=== PATIENT | male | born 1960 | race Caucasian/White ===

== ENCOUNTER → 2021-01-14 | Outpatient (CLI) | payer OTHER ==
--- NOTE | 2021-01-14 14:40 | US ---
EXAMINATION TYPE: US thyroid st tissue head/neck DATE OF EXAM: 01/14/2021 COMPARISON: NONE CLINICAL HISTORY: 60-year-old male R59.0 Localized enlarged lymph nodes. Right medial shoulder level/ lateral neck palpable is noted by the patient. TECHNIQUE: Multiple sonographic images of the thyroid gland are obtained. Additional targeted scannin g at the patient's right-sided palpable site adjacent to the shoulder. FINDINGS: 1) RIGHT medial shoulder/lateral neck palpable US: solid hypoechoic oval mass is noted = 1.3 x 0.6 x 0.4cm. This seems to be located within the subcutaneous adipose layer. 2) Thyroid evaluation: GLAND SIZE: Right Lobe: 5.0 x 1.5 x 1.9 cm Overall Parenchyma: homogenous Left Lobe: 4.7 x 1.7 x 1.5 cm Overall Parenchyma: homogeneous Isthmus Thickness: 0.2 cm Thyroid NODULES RIGHT: # of nodules measured on right: 1 1. 0.5 X 0.5 x 0.4 cm, mid pole, solid, isoechoic TR 3 nodule, which is wider than tall, with ill-d efined margins, without echogenic foci. LEFT: # of nodules measured on left: 0 ISTHMUS: # of nodules measured in the isthmus: 0 Bilateral neck scanned: Prominent, mildly thickened but nonenlarged lymph node is seen superior to ri ght thyroid = 1.7 x 1.0x 0.7cm. IMPRESSION: 1. Palpable area near the medial aspect of the right shoulder shows a 1.3 cm hypoechoic lesion in the subcutaneous adipose layer. This is nonspecific. Consider the possibility of a lipoma or area of fat necrosis. Three-month follow-up to reassess. If growth is noted or symptomatic, consider surgical ev aluation. 2. A thickened and borderline sized 1 cm short axis lymph node in the right side of the neck just abo ve the thyroid gland probably reactive/post inflammatory. 1.5 - 2 month follow-up ultrasound to ensur e stability/resolution. If there is further growth, contrast enhanced CT of the neck can be considere d. 3. Solitary 5 mm TR3 nodule in the right thyroid lobe.
== END | disposition home or self-care (01) ==
LOC: RADUSWWP 12:03
PROVIDERS: ATTEND Family Medicine
DX: E04.1 Nontoxic single thyroid nodule (principal); M25.9 Joint disorder, unspecified
CPT/HCPCS: 76536

== ENCOUNTER 2021-04-30 08:07 | Inpatient (IN) | payer OTHER ==
[2021-03-11 09:03] VITALS: BMI 34.2
[~2021-04-30 08:07] MED LIST: LACTATED RINGERS 1,000 ML IV SCH; LIDOCAINE 1% (10MG/ML) FOR IV START INTRADERMA PRN
[2021-04-30] MEDS: LACTATED RINGERS 1,000 ML IV SCH (08:47)
[2021-04-30 08:51] LABS: Glucose,Whole Blood 111 mg/dL (75-99)
[2021-04-30] MEDS ORDERED: LABETALOL 5 MG/ML VIAL MDV IVP ONE (08:58)
[2021-04-30] MEDS ORDERED: HEPARIN SODIUM 1,000 UN/ML (10ML VL) IV PRN (10:19)
[2021-04-30] MEDS ORDERED: HEPARIN SODIUM 1,000 UN/ML (10ML VL) IV ONE (10:19)
[2021-04-30] MEDS ORDERED: DILTIAZEM DRIP BOLUS FROM BAG 1 MG SOLN IV ONE (10:19)
[2021-04-30] MEDS: IV FLUID CONTINUATION 1,000 ML IV ONE ×2 (10:41→13:58)
[2021-04-30] MEDS ORDERED: DILTIAZEM 125 MG in SODIUM CHLORIDE 0.9% 100 ML IV SCH (11:00)
[2021-04-30] MEDS ORDERED: HEPARIN SOD,PORK IN 0.45% NACL 25,000 UNIT in 0.45% NACL 1 250ML.BAG IV SCH (11:00)
[2021-04-30 11:14] LABS: Partial Thromboplastin Time 24.6 sec (22.0-30.0); Prothrombin Time 10.4 sec (9.0-12.0)
[2021-04-30] MEDS: METOPROLOL TARTRATE 25 MG TAB PO SCH ×2 (11:24→21:05)
--- NOTE | 2021-04-30 11:41 | P.CRDCN ---
History of Present Illness Consult date: 04/30/21 History of present illness: HISTORY OF PRESENT ILLNESS: This is a 60-year-old male with a past medical history significant for for paroxysmal atrial fibrillation/flutter. The patient used to follow with Dr. Nguyen but states after he retired he has not seen a digital account director. He also reports that he stopped taking all of his cardiac medications after he stopped seeing his digital account director. The patient reports that he used to have a history of alcohol abuse but reports that he stopped drinking 5 years ago. We have been asked to see the patient in consultation for tachycardia. The patient was scheduled to undergo colonoscopy today with Dr. Cloud. The patient was found to be tachycardic in the preoperative area and cardiology was consulted. The patient was examined at the bedside with Dr. Menjivar. His EKG was reviewed revealing atrial flutter with RVR with heart rate around 150. The patient's blood pressure is stable. He denies any chest pain or pressure. He denies shortness of breath. He denies any palpitations. EKG reveals atrial flutter with RVR Laboratory data: Not available at the time of this dictation Current home cardiac medications include none Patient underwent stress echocardiogram in July 2018 which was negative for ischemia REVIEW OF SYSTEMS: At the time of my exam: CONSTITUTIONAL: Denies fever or chills. HEENT: Denies blurred vision, vision changes, or eye pain. Denies hemoptysis CARDIOVASCULAR: Denies chest pain. Denies orthopnea. Denies PND. Denies palpitations RESPIRATORY: Denies shortness of breath. GASTROINTESTINAL: Denies abdominal pain. Denies nausea or vomiting. HEMATOLOGIC: Denies bleeding disorders. GENITOURINARY: Denies any blood in urine. SKIN: Denies pruitis. Denies rash. PHYSICAL EXAM: VITAL SIGNS: Reviewed. GENERAL: Well-developed in no acute distress. HEENT: Head is normocephalic. Pupils are equal, round. Sclerae anicteric. Mucous membranes of the mouth are moist. Neck supple. No JVD or thyromegaly LUNGS: Respirations even and unlabored. Lungs essentially clear to auscultation bilaterally. HEART: Tachycardic. Regular rate and rhythm. S1 and S2 heard. ABDOMEN: Soft. Nondistended. Nontender. EXTREMITIES: Normal range of motion. No clubbing or cyanosis. Peripheral pulses intact. Trace bilateral lower extremity edema NEUROLOGIC: Awake and alert. Oriented x 3. ASSESSMENT: Paroxysmal typical atrial flutter with RVR History of paroxysmal atrial fibrillation/flutter History of alcohol abuse Former nicotine dependence PLAN: The patient's colonoscopy will be canceled for today secondary to atrial flutter with RVR. The patient will be admitted to . Begin IV Cardizem at 5mg/hr after 5mg bolus. Begin metoprolol 25 mg twice a day Check TSH Continue telemetry monitoring Obtain 2-D echo to assess cardiac structure and function The patient will need to be started on oral anticoagulation. We will begin IV heparin at this time and await further input from GI service to see if they're able to perform colonoscopy tomorrow. Further recommendations pending patient course Nurse practitioner note has been reviewed by physician. Signing provider agrees with the documented findings, assessment, and plan of care. Past Medical History Past Medical History: No Reported History History of Any Multi-Drug Resistant Organisms: None Reported Additional Past Surgical History / Comment(s): WISDOM TEETH REMOVED UNDER ANESTHESIA ABOUT 10 YEARS AGO Past Anesthesia/Blood Transfusion Reactions: No Reported Reaction Smoking Status: Former smoker - Past Family History Father Family Medical History: Cancer Son(s) Family Medical History: Cancer Additional Family Medical History / Comment(s): SKIN Medications and Allergies Home Medications Medication Instructions Recorded Confirmed Type No Known Home Medications 03/11/21 04/30/21 History Allergies Allergy/AdvReac Type Severity Reaction Status Date / Time No Known Allergies Allergy Verified 04/30/21 08:25 Physical Exam Vitals: Vital Signs Temp Pulse Resp BP Pulse Ox 04/30/21 09:48 145 H 16 108/77 97 04/30/21 09:21 148 H 16 117/67 95 04/30/21 09:06 148 H 18 106/75 98 04/30/21 08:32 97.7 F 158 H 18 117/73 96 Intake and Output 04/29/21 04/30/21 04/30/21 22:59 06:59 14:59 Intake Total 700 Balance 700 Intake: IV 700 Other: Weight 123.2 kg Results Coagulation 04/30/21 Range/Units 10:34 PT 10.4 (9.0-12.0) sec APTT 24.6 (22.0-30.0) sec Current Medications Generic Name Dose Route Start Last Admin Trade Name Rigobertoq PRN Reason Stop Dose Admin Heparin Sodium (Porcine) 0 unit 04/30/21 10:19 Heparin Sodium 1,000 Un/Ml (10ml Vl) IV 05/30/21 10:20 PER PROTOCOL PRN Low PTT Protocol Lactated Ringer's 1,000 mls @ 20 mls/hr 04/30/21 06:00 04/30/21 08:47 Lactated Ringers IV 05/30/21 06:01 700 mls .Q24H CINDY Administration Diltiazem HCl 125 mg/ Sodium 125 mls @ 5 mls/hr 04/30/21 11:00 04/30/21 10:42 Chloride IV 05/30/21 11:01 0 mls .Q24H CINDY Administration 5 MG/HR Heparin Sodium/Sodium Chloride 250 mls @ 10 mls/hr 04/30/21 11:00 04/30/21 11:24 25,000 unit/ Sodium Chloride IV 05/30/21 11:01 0 mls .Q24H CINDY Administration Protocol 8.117 UNITS/KG/HR Lidocaine HCl 0.1 ml 04/30/21 06:00 Lidocaine 1% (10mg/Ml) For Iv Start INTRADERMA 05/30/21 06:01 PER PROTOCOL PRN IV Start Metoprolol Tartrate 25 mg 04/30/21 10:30 04/30/21 11:24 Metoprolol Tartrate 25 Mg Tab PO 05/30/21 10:31 25 mg BID CINDY Administration Intake and Output 04/29/21 04/30/21 04/30/21 22:59 06:59 14:59 Intake Total 700 Balance 700 Intake: IV 700 Other: Weight 123.2 kg Patient Weight 05/01/21 06:59 Weight 123.2 kg
--- NOTE | 2021-04-30 16:41 | P.HPIM ---
History of Present Illness H&P Date: 04/30/21 Chief Complaint: tachycardia 60 year old man with history of paroxysmal atrial fibrillation presented for elective colonoscopy, but was transferred to the hospital for tachycardia. Pt was in his usual state of health, when he presented for elective colonoscopy. Patient was then noted to have heart rates in the 180s. Cardiology was consulted, and EKG demonstrated atrial flutter with RVR. Patient was subsequently transferred to the floor, and started on a diltiazem drip, heparin drip. Patient's heart rates improved to the 70s, and return to sinus rhythm. Patient himself has no complaints including denial of fevers, chills, nausea, vomiting, chest pain, palpitations, syncope, presyncope, abdominal pain, cough, dyspnea, dysuria, dyschezia, numbness/weakness of extremities. At the time of my evaluation, patient was 113/60, heart rate 91, 96% on room air. Review of Systems All Systems reviewed and pertinent positives and negatives noted in HPI, all other symptoms are negative Past Medical History Past Medical History: No Reported History History of Any Multi-Drug Resistant Organisms: None Reported Additional Past Surgical History / Comment(s): WISDOM TEETH REMOVED UNDER ANESTHESIA ABOUT 10 YEARS AGO Past Anesthesia/Blood Transfusion Reactions: No Reported Reaction Past Psychological History: No Psychological Hx Reported Smoking Status: Former smoker Past Alcohol Use History: None Reported Additional Past Alcohol Use History / Comment(s): QUIT SMOKING 2015. NO ALCOHOL SINCE 2015 Past Drug Use History: None Reported - Past Family History Father Family Medical History: Cancer Son(s) Family Medical History: Cancer Additional Family Medical History / Comment(s): SKIN Medications and Allergies Home Medications Medication Instructions Recorded Confirmed Type Apixaban [Eliquis] 5 mg PO BID 30 Days #60 tab 04/30/21 Rx Allergies Allergy/AdvReac Type Severity Reaction Status Date / Time No Known Allergies Allergy Verified 04/30/21 08:25 Physical Exam Osteopathic Statement: *. No significant issues noted on an osteopathic structural exam other than those noted in the History and Physical/Consult. Vitals: Vital Signs Temp Pulse Resp BP Pulse Ox 04/30/21 12:00 91 20 113/60 96 04/30/21 11:45 92 20 112/63 96 04/30/21 11:30 144 H 20 109/62 96 04/30/21 11:15 141 H 20 118/63 96 04/30/21 11:00 181 H 20 128/62 96 04/30/21 10:45 162 H 20 130/61 96 04/30/21 10:30 179 H 20 132/62 95 04/30/21 09:48 145 H 16 108/77 97 04/30/21 09:21 148 H 16 117/67 95 04/30/21 09:06 148 H 18 106/75 98 04/30/21 08:32 97.7 F 158 H 18 117/73 96 Intake and Output 04/30/21 04/30/21 04/30/21 06:59 14:59 22:59 Intake Total 700 Balance 700 Intake: IV 700 Other: Weight 123.2 kg Gen: awake, alert HEENT: normocephalic, atraumatic, good hearing acuity, moist mucous membranes Resp: good air exchange, breathing comfortably with no accessory muscle use CVS: good distal perfusion x 4, GI: soft, NTTP, ND : no SPT, no CVAT, guadarrama catheter not present MSK: no pitting edema, no clubbing Neuro: non-focal, moving all extremities Psych: cooperative, euthymic mood Results Labs: Abnormal Lab Results - Last 24 Hours (Table) 04/30/21 Range/Units 08:46 POC Glucose (mg/dL) 111 H (75-99) mg/dL Assessment and Plan Assessment: Paroxysmal atrial flutter with RVR -Admit to observation, telemetry -Heparin drip -Diltiazem drip -Cardiology consult -Echocardiogram -Check TSH -Patient had a sandwich for dinner, will have to defer the colonoscopy as he does not want to re-prep at this time. Obesity class II -outpatient weight loss referral Full Code
[2021-04-30 17:40] LABS: African American GFR (CKD) >90 (>60 ml/min/1.73 sqM); Anion Gap 10 mmol/L; Blood Urea Nitrogen 12 mg/dL (9-20); Calcium 9.1 mg/dL (8.4-10.2); Carbon Dioxide 24 mmol/L (22-30); Chloride 106 mmol/L (98-107); Glucose 93 mg/dL (74-99); Non-African American GFR(CKD) 87 (>60 ml/min/1.73 sqM); Potassium 4.1 mmol/L (3.5-5.1); Sodium 140 mmol/L (137-145)
[2021-04-30 17:48] LABS: Basophils # (A) 0.1 k/uL (0-0.2); Basophils % (A) 1 %; Eosinophils # (A) 0.2 k/uL (0-0.7); Eosinophils % (A) 2 %; HCT 48.4 % (39.0-53.0); HGB 15.8 gm/dL (13.0-17.5); Lymphocytes # (A) 2.7 k/uL (1.0-4.8); Lymphocytes % (A) 28 %; MCH 31.2 pg (25.0-35.0); MCHC 32.7 g/dL (31.0-37.0); MCV 95.5 fL (80.0-100.0); Mean Platelet Volume 7.8; Monocytes # (A) 0.8 k/uL (0-1.0); Monocytes % (A) 8 %; Neutrophils # (A) 5.7 k/uL (1.3-7.7); Neutrophils % (A) 59 %; Platelet Count 284 k/uL (150-450); RBC 5.07 m/uL (4.30-5.90); RDW 13.4 % (11.5-15.5); WBC 9.6 k/uL (3.8-10.6)
[2021-04-30] MEDS: APIXABAN 5 MG TAB PO SCH (21:05)
[2021-05-01] MEDS: LACTATED RINGERS 1,000 ML IV SCH (05:32)
[2021-05-01] MEDS: APIXABAN 5 MG TAB PO SCH (08:19)
[2021-05-01] MEDS: METOPROLOL TARTRATE 25 MG TAB PO SCH (08:19)
[2021-05-01 08:21] LABS: Basophils % (A) 1 %; Eosinophils # (A) 0.2 k/uL (0-0.7); Eosinophils % (A) 3 %; HCT 46.8 % (39.0-53.0); HGB 15.1 gm/dL (13.0-17.5); Lymphocytes # (A) 1.5 k/uL (1.0-4.8); Lymphocytes % (A) 22 %; MCHC 32.2 g/dL (31.0-37.0); MCV 96.4 fL (80.0-100.0); Mean Platelet Volume 7.8; Monocytes # (A) 0.4 k/uL (0-1.0); Monocytes % (A) 5 %; Neutrophils # (A) 4.6 k/uL (1.3-7.7); Neutrophils % (A) 67 %; Platelet Count 262 k/uL (150-450); RBC 4.85 m/uL (4.30-5.90); RDW 13.4 % (11.5-15.5); WBC 6.9 k/uL (3.8-10.6)
[2021-05-01 08:22] VITALS: RESP 16
[2021-05-01 08:31] LABS: Prothrombin Time 10.5 sec (9.0-12.0)
--- NOTE | 2021-05-01 08:56 | ECHOF ---
Referral Reason:aflutter rvr, lv function MEASUREMENTS -------- HEIGHT: 180.3 cm WEIGHT: 122.9 kg BP: RVIDd: 3.4 cm (< 3.3) IVSd: 1.2 cm (0.6 - 1.1) LVIDd: 4.9 cm (3.9 - 5.3) LVPWd: 1.1 cm (0.6 - 1.1) IVSs: 1.6 cm LVIDs: 3.6 cm LVPWs: 1.3 cm Ao Diam: 4.0 cm (2.0 - 3.7) AV Cusp: 2.3 cm (1.5 - 2.6) LA Diam: 2.7 cm (2.7 - 3.8) IVSd: 1.0 cm (0.6 - 1.1) LVIDd: 4.3 cm (3.9 - 5.3) LVPWd: 1.2 cm (0.6 - 1.1) IVSs: 1.2 cm LVIDs: 3.4 cm LVPWs: 1.5 cm EDV(Teich): 83 ml ESV(Teich): 46 ml EF(Teich): 44 % %FS: 22 % SV(Teich): 37 ml MV E Enio: 0.52 m/s MV DecT: 183 ms MV A Enio: 0.35 m/s MV E/A Ratio: 1.49 RAP: 5.00 mmHg RVSP: 8.03 mmHg FINDINGS -------- This was a technically difficult study with suboptimal views. The left ventricular size is normal. There is mild concentric left ventricular hypertrophy. Overa ll left ventricular systolic function is mild-moderately impaired with, an EF between 40 - 45 %. The right ventricle is mildly enlarged. The left atrial size is normal. The right atrial size is normal. Lumason used The aortic valve is trileaflet and appears structurally normal. The mitral valve is normal. Mild mitral regurgitation is present. The tricuspid valve appears structurally normal. Mild tricuspid regurgitation present. Right vent ricular systolic pressure is normal at < 35 mmHg. There is no pulmonic regurgitation present. The aortic root size is normal. IVC Not well visulized. There is no pericardial effusion. CONCLUSIONS -------- 1. The left ventricular size is normal. 2. There is mild concentric left ventricular hypertrophy. 3. Overall left ventricular systolic function is mild-moderately impaired with, an EF between 40 - 45 %. 4. The right ventricle is mildly enlarged. 5. Mild mitral regurgitation is present. 6. Mild tricuspid regurgitation present. 7. There is no pericardial effusion. BULK STATION OPERATOR: Heather Barreto RDCS
[2021-05-01] MEDS ORDERED: LOSARTAN 25 MG TAB PO SCH ×2 (09:30)
--- NOTE | 2021-05-01 11:09 | P.DS ---
Providers Date of admission: 04/30/21 12:39 Expected date of discharge: 05/01/21 Attending physician: Alexa Jeff MD Consults: 04/30/21 09:42 Consult Physician Urgent Consulting Provider: [facility] Consult Reason/Comments: tacchycardia, pt scheduled fro colonoscopy today Do you want consulting provider notified?: Yes 04/30/21 11:42 Consult Physician Routine Consulting Provider: Jessika Hernandez Consult Reason/Comments: MEDICAL MANAGEMENT Do you want consulting provider notified?: Yes Primary care physician: Gaurav Mckeon MD Hospital Course: 60-year-old male admitted to the hospital after having tachycardia A. fib with RVR patient was scheduled to have colonoscopy and was found to be tachycardic was found to be in A. fib so was admitted to the hospital started on Cardizem drip if by cardiology patient feels much better today was cleared to go home During the hospital stay the patient remained stable Constitutional: No acute distress, conversant, pleasant Eyes: Anicteric sclerae, moist conjunctiva, no lid-lag PERRLA ENMT: NC/AT Oropharynx clear, no erythema, exudates Neck: Supple, FROM, no masses, or JVD No carotid bruits No thyromegaly Lungs: Clear to auscultation Clear to percussion Normal respiratory effort, no accessory muscle use Cardiovascular: Heart regular in rate and rhythm, No murmurs, gallops, or rubs No peripheral edema Abdominal: Soft Nontender, no guarding, rebound or rigidity Abdomen moving with respiration Normoactive bowel sounds No hepatomegaly, No splenomegaly No palpable mass No abdominal wall hernia noted Skin: Normal temperature, tone, texture, turgor No induration No subcutaneous nodules No rash, lesions No ulcers Extremities: No digital cyanosis No clubbing Pedal pulses intact and symmetrical Radial pulses intact and symmetrical Normal gait and station No calf tenderness Psychiatric:Alert and oriented to person, place and time Appropriate affect Intact judgement Neuro: Muscles Strength 5/5 in all 4 extremities Sensation to light touch grossly present throughout Cranial nerves II-XII grossly intact No focal sensory deficits Discharge plan A. fib with RVR resolved patient will be discharged on Lopressor and anticoagulation to follow-up with cardiology and primary care physician Follow-up with gastroenterology for arranging colonoscopic Patient Condition at Discharge: Stable Plan - Discharge Summary Discharge Rx Participant: No New Discharge Prescriptions: New Apixaban [Eliquis] 5 mg PO BID 30 Days #60 tab Apixaban [Eliquis] 5 mg PO BID tab Losartan [Cozaar] 25 mg PO DAILY 30 Days #30 tab Metoprolol Tartrate [Lopressor] 25 mg PO BID 30 Days #60 tab Discharge Medication List Apixaban [Eliquis] 5 mg PO BID 30 Days #60 tab 04/30/21 [Rx] Apixaban [Eliquis] 5 mg PO BID tab 05/01/21 [Rx] Losartan [Cozaar] 25 mg PO DAILY 30 Days #30 tab 05/01/21 [Rx] Metoprolol Tartrate [Lopressor] 25 mg PO BID 30 Days #60 tab 05/01/21 [Rx] Follow up Appointment(s)/Referral(s): Myles Alcala MD [STAFF PHYSICIAN] - 05/08/21 8:30 am Patient Instructions/Handouts: Atrial Flutter (DC) Discharge Disposition: HOME SELF-CARE
[2021-05-01 11:57] VITALS: BP 125/82; PULSE 96; TEMP 98.4
--- NOTE | 2021-05-01 12:00 | P.PN ---
Subjective This is a 60-year-old male with a past medical history significant for for paroxysmal atrial fibrillation/flutter, previous alcohol use. The patient used to follow with Dr. Nguyen but states after he retired he has not seen a puller machine. He also reports that he stopped taking all of his cardiac medications after he stopped seeing his puller machine. The patient reports that he used to have a history of alcohol abuse but reports that he stopped drinking 5 years ago. We have been asked to see the patient in consultation for tachycardia. The patient was scheduled to undergo colonoscopy today with Dr. Toro. The patient was found to be tachycardic in the preoperative area and cardiology was consulted. His EKG was reviewed revealing atrial flutter with RVR with heart rate around 150. He was started on IV Heparin drip, IV cardizem, and metoprolol tartrate 25mg BID. 2-D echocardiogram revealed EF of 4045 percent, mild mitral regurgitation, mild tricuspid regurgitation. Patient seen and examined at bedside, no acute distress. He converted to sinus mechanism yesterday and is maintaining sinus mechanism. Vital signs are stable. His colonoscopy has been canceled. Labs reviewed, CBC unremarkable, sodium 140, potassium 4.1, BUN 12, serum creatinine 0.9, TSH within normal limits. PHYSICAL EXAM: VITAL SIGNS: Blood pressure 05[birth year]13/1981, heart rate 96, afebrile, saturations 97% on room air GENERAL: Well-developed in no acute distress. HEENT: Neck supple. No JVD LUNGS: Respirations even and unlabored. Lungs essentially clear to auscultation bilaterally. HEART: Regular rate and rhythm. S1 and S2 heard. ABDOMEN: Soft. Nondistended. Nontender. EXTREMITIES: Normal range of motion. No clubbing or cyanosis. Peripheral pulses intact. NEUROLOGIC: Awake and alert. Oriented x 3. ASSESSMENT: Paroxysmal typical atrial flutter with RVR Cardiomyopathy, likely non-ischemic, cannot rule out ischemic vs non-ischemic at this time History of paroxysmal atrial fibrillation/flutter History of alcohol abuse Former nicotine dependence PLAN: We will continue metoprolol tartrate at 25mg BID. Continue Eliquis 5mg BID, case management consulted for coverage appreciate recommendations. Patient does need longterm anticoagulation. Patient was previously on coumadin we may need to bridge to coumadin based on anticoagulation cost coverage Patient to follow up with Dr. Alcala outpatient next week appointment on 05/08/21. Patient may need atrial flutter ablation in the future. Nurse practitioner note has been reviewed by physician. Signing provider agrees with the documented findings, assessment, and plan of care. Objective - Vital Signs Vital signs: Vital Signs Temp 97.9 F 05/01/21 08:10 Pulse 92 05/01/21 08:10 Resp 16 05/01/21 08:10 BP 117/73 05/01/21 08:10 Pulse Ox 93 L 05/01/21 08:10 Intake & Output 04/30/21 05/01/21 05/01/21 18:59 06:59 18:59 Intake Total 940 120 Balance 940 120 Weight 123.2 kg 122.3 kg Intake: IV 700 Oral 240 120 Other: Voiding Method Toilet # Voids 1 - Labs CBC & Chem 7: 05/01/21 07:55 04/30/21 16:53
[2021-05-01 17:11] LABS: Chol/HDL Ratio 3.77 Ratio; VLDL Calculation 17.08 mg/dL (5.00-40.00)
== END 2021-05-01 14:15 | disposition home or self-care (01) | DRG 310 ==
LOC: ORWHC2ENDO 08:07 → 3SCARD 12:21 → OBSVTOIN 12:39 → 3SCARD 12:39
PROVIDERS: ADMIT Internal Medicine; ATTEND Internal Medicine
DX: I48.0 Paroxysmal atrial fibrillation (principal); I42.9 Cardiomyopathy, unspecified; I48.3 Typical atrial flutter; F10.11 Alcohol abuse, in remission; I08.1 Rheumatic disorders of both mitral and tricuspid valves; Z53.8 Procedure and treatment not carried out for other reasons; E66.9 Obesity, unspecified; Z68.35 Body mass index [BMI] 35.0-35.9, adult; Z98.818 Other dental procedure status; Z87.891 Personal history of nicotine dependence; Z80.8 Family history of malignant neoplasm of other organs or systems
CPT/HCPCS: 80048; 80061; 83036; 84443; 85025; 85610; 85730; 93306

== ENCOUNTER → 2021-06-16 | Outpatient (CLI) | payer OTHER ==
[2021-06-16 10:20] LABS: HCT 50.5 % (39.6-50.0); HGB 16.5 g/dL (13.0-17.0); MCH 30.2 pg (27.0-32.0); MCHC 32.7 g/dL (32.0-37.0); MCV 92.5 fL (80.0-97.0); Mean Platelet Volume 10.8 fL (9.5-12.2); NRBC Per 100 WBC 0 /100 WBCS (0.0-0.0); Platelet Count 276 X 10*3/uL (140-440); RBC 5.46 X 10*6/uL (4.40-5.60); WBC 8.46 X 10*3/uL (4.50-10.00)
[2021-06-16 10:27] LABS: African American GFR (CKD) 101.7 (60.0-200.0); Anion Gap 10.2 mmol/L (10.00-18.00); Carbon Dioxide 22.5 mmol/L (20.0-27.5); Non-African American GFR(CKD) 87.7 (60.0-200.0); Potassium 4.7 mmol/L (3.5-5.5)
[2021-06-17 13:37] LABS: Coronavirus SARS CoV-2 Not Detected (Not Detected)
== END ==
LOC: LABPAT 07:09
PROVIDERS: ATTEND Internal Medicine Clinical Cardiac Electrophysiology
DX: Z01.812 Encounter for preprocedural laboratory examination (principal); I48.3 Typical atrial flutter
CPT/HCPCS: 80051; 82565; 84520; 85027; 36415; U0003; C9803

== ENCOUNTER 2021-06-19 11:45 | Day surgery (SDC) | payer OTHER ==
[2021-06-18 09:52] VITALS: BMI 33.6
[2021-06-19] MEDS ORDERED: SODIUM CHLORIDE 0.9% 1,000 ML IV ONE (12:10)
[2021-06-19] MEDS ORDERED: NEOSTIGMINE 1 MG/ML 10 ML VIAL ONE (14:21)
[2021-06-19] MEDS ORDERED: LIDOCAINE 1% INJ 10MG/ML (20 ML MDV) ONE ×2 (14:21→14:38)
[2021-06-19] MEDS ORDERED: ISOPROTERENOL 250 MCG/1.25 ML SYR IV ONE (14:21)
[2021-06-19] MEDS ORDERED: GLYCOPYRROLATE 0.2 MG/ML 2 ML VIAL ONE (14:21)
[2021-06-19] MEDS ORDERED: SUCCINYLCHOLINE CHLORIDE 100 MG/5 ML SYR IV ONE (14:21)
[2021-06-19] MEDS ORDERED: HYDROmorphone (PF) 1 MG/ML ONE (14:21)
[2021-06-19] MEDS ORDERED: ROCURONIUM 10 MG/ML (5 ML VIAL) IV ONE (14:21)
[2021-06-19] MEDS ORDERED: MIDAZOLAM 2 MG/2 ML VIAL ONE (14:21)
[2021-06-19] MEDS ORDERED: PROPOFOL 10 MG/ML 20 ML VIAL IV ONE (14:21)
[2021-06-19] MEDS ORDERED: fentaNYL (PF) 50 MCG/ML 2 ML AMP ONE (14:21)
--- NOTE | 2021-06-19 15:09 | P.HPCAR ---
History of Present Illness This is Dr. 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 EXAMINATION: Blood pressure 118/75 mmHg pulse rate 80s, afebrile No JVD Lungs no rhonchi no crackles Heart sounds are normal normal S1 normal S2 Abdomen soft Extended is warm no edema REVIEW OF LABS, ECG & MEDICAL DATA Lipid panel pending Twelve-lead EKG from April shows typical atrial flutter with ventricular rates of 136 beats a minute him a 2-1 AV block Physical Exam Vitals: Vital Signs Temp Pulse Resp BP Pulse Ox 06/19/21 12:26 97.6 F 81 16 118/75 100 Intake and Output 06/19/21 06/19/21 06/19/21 06:59 14:59 22:59 Intake Total 300 Balance 300 Intake: IV 300 Other: Weight 117 kg Past Medical History Past Medical History: Atrial Fibrillation, Hyperlipidemia, Hypertension Additional Past Medical History / Comment(s): SEE DR. ALCALA'S H & P History of Any Multi-Drug Resistant Organisms: None Reported Past Surgical History: No Surgical Hx Reported Additional Past Surgical History / Comment(s): WISDOM TEETH REMOVED UNDER ANESTHESIA ABOUT 10 YEARS AGO, Past Anesthesia/Blood Transfusion Reactions: No Reported Reaction Smoking Status: Former smoker - Past Family History Father Family Medical History: Cancer Son(s) Family Medical History: Cancer Additional Family Medical History / Comment(s): SKIN Physical Examination Vital Signs Temp Pulse Resp BP Pulse Ox 06/19/21 12:26 97.6 F 81 16 118/75 100 Intake and Output 06/19/21 06/19/21 06/19/21 06:59 14:59 22:59 Intake Total 300 Balance 300 Intake: IV 300 Other: Weight 117 kg Results Current Medications Generic Name Dose Route Start Last Admin Trade Name Freq PRN Reason Stop Dose Admin Sodium Chloride 1,000 mls @ 20 mls/hr 06/19/21 06:01 Saline 0.9% IV 07/19/21 06:02 .Q24H CINDY Intake and Output 06/19/21 06/19/21 06/19/21 06:59 14:59 22:59 Intake Total 300 Balance 300 Intake: IV 300 Other: Weight 117 kg Patient Weight 06/20/21 06:59 Weight 117 kg
[2021-06-19] MEDS ORDERED: LIDOCAINE 1% INJ 10MG/ML (20 ML MDV) SQ ONE (15:36)
[2021-06-19] MEDS ORDERED: HEPARIN SODIUM (1,000 UNIT/ML) 1,000 UNIT in SODIUM CHLORIDE 0.9% 1,000 ML IRRIGATION ONE (16:06)
--- NOTE | 2021-06-19 18:17 | P.EPPROC ---
- EP Procedure Note Electrophysiology Procedure Note: Procedure Typical atrial flutter ablation, successful Indication for procedure typical atrial flutter with RVR Rate-related cardio myopathy Details Patient was brought to the EP lab in a fasting state. Written informed consent was obtained prior to the procedure. General anesthesia was provided Venous access obtained in the right and left femoral veins Diagnostic cath was placed in the high right atrium coronary sinus His bundle area and right ventricle Intracardiac echo catheter list for 3-D mapping. No pericardial effusion Long sheath placed Mapping and ablation catheter placed irrigated tip 3-D electro-anatomic mapping performed Cavo tricuspid isthmus identified This was a long isthmus with a mid isthmus pouch, small RF ablation was performed along the cavo tricuspid isthmus A second lesion had to be performed in juxtaposition to this first-line slightly on the lateral aspect to obtain complete bidirectional block This is confirmed with noncapture capture at high output along the line Differential pacing was performed Complete line of block was noted at 100% force time integral Conduction around the IVC was noted but not through the RF line This was a long procedure since it involved a long isthmus, ablation of a pouch within the isthmus, multiple pacing maneuvers to determine that there was no leak across But conduction was proceeding around the IVC resulting in the short-term isthmus conduction time to is the IVC portion of the line Output pacing was performed along the line Following that a full EP study is performed Sinus cycle length 827 ms, QRS 95, QT 488 and MA interval 164 ms AH 97 and HV 54 ms AV node Wenckebach block 300 ms VA Wenckebach block 300 ms Sinus node recovery times at 600, 504 100 ms were normal Isuprel was started after the ablation Burst stimulation was performed from 400 ms down to 200 ms from the high right atrium No atrial fibrillation induced Impression Normal sinus node function Normal AV node function No evidence for slow pathway conduction Successful atrial flutter ablation No inducible atrial fibrillation with burst stimulation on Isuprel
[2021-06-19] MEDS ORDERED: ACETAMINOPHEN TAB 325 MG TAB PO PRN (18:21)
[2021-06-19] MEDS ORDERED: HYDROcodone/APAP 5-325MG 1 EACH TAB PO PRN (18:21)
[2021-06-19] MEDS ORDERED: HYDROmorphone 0.5 MG/0.5 ML SYRINGE IVP ONE ×2 (18:40→18:57)
[2021-06-19] MEDS: ACETAMINOPHEN IV (For NPO) 1,000 MG in EMPTY BAG 1 BAG IVPB ONE ×2 (18:50→19:05)
[2021-06-19] MEDS: SODIUM CHLORIDE 0.9% 1,000 ML IV SCH (20:23)
[2021-06-19] MEDS: APIXABAN 5 MG TAB PO SCH (20:28)
[2021-06-19] MEDS: METOPROLOL TARTRATE 25 MG TAB PO SCH (20:28)
[2021-06-19] MEDS ORDERED: ATORVASTATIN 20 MG TAB PO SCH (21:00)
[2021-06-20] MEDS: SODIUM CHLORIDE 0.9% 1,000 ML IV SCH (05:25)
[2021-06-20] MEDS: METOPROLOL TARTRATE 25 MG TAB PO SCH (07:47)
[2021-06-20] MEDS: APIXABAN 5 MG TAB PO SCH (07:47)
[2021-06-20 07:52] VITALS: RESP 18; TEMP 97.7
[2021-06-20] MEDS ORDERED: LOSARTAN 25 MG TAB PO SCH (09:00)
--- NOTE | 2021-06-20 10:48 | P.DS ---
Providers Attending physician: Myles Alcala Primary care physician: Gaurav Mckeon MD Hospital Course: Patient is doing well No chest discomfort dizziness lightheadedness no palpitations Groins of healed well. 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 Alcala in 1-2 weeks His venous access sites were PERCLOSED Change from metoprolol tartrate to metoprolol succinate Toprol-XL 50 mg daily Plan - Discharge Summary Discharge Rx Participant: Yes New Discharge Prescriptions: New Metoprolol Succinate (ER) [Toprol XL] 50 mg PO DAILY #90 tab Continue Metoprolol Tartrate [Lopressor] 25 mg PO BID 30 Days #60 tab No Action Apixaban [Eliquis] 5 mg PO BID tab Atorvastatin [Lipitor] 20 mg PO HS Losartan [Cozaar] 25 mg PO DAILY 30 Days #30 tab Discharge Medication List Apixaban [Eliquis] 5 mg PO BID tab 05/01/21 [Rx] Losartan [Cozaar] 25 mg PO DAILY 30 Days #30 tab 05/01/21 [Rx] Metoprolol Tartrate [Lopressor] 25 mg PO BID 30 Days #60 tab 05/01/21 [Rx] Atorvastatin [Lipitor] 20 mg PO HS 06/18/21 [History] Metoprolol Succinate (ER) [Toprol XL] 50 mg PO DAILY #90 tab 06/19/21 [Rx] Follow up Appointment(s)/Referral(s): Myles Alcala MD [STAFF PHYSICIAN] - 1 Week (please call the office to make follow up appointment with Fabiola) Patient Instructions/Handouts: Cardiac Ablation (DC) Activity/Diet/Wound Care/Special Instructions: Post EP study - Ablation instructions 1. Keep access sites dry for 2 days. 2. No heavy lifting or straining for 2 days. 3. Avoid bending the hips repeatedly for 2 days. 4. You may go up and down stairs slowly Call if the following is noted 1. Bleeding, increasing swelling or pain at the access sites. 2. Increasing chest discomfort, especially upon taking a deep breath. 3. Increasing shortness of breath, at rest or with exertion. 4. Undue cough / phlegm 5. Difficulty or pain while swallowing. 6. Pain or change in color in the extremities. 7. Fever, chills, rigors. 8. Increasing headache or neurologic symptoms. 9. Dizziness, fainting, palpitations Stop metoprolol tartrate Start metoprolol succinate 50 mg by mouth daily Continue ELIQUIS Discharge Disposition: HOME SELF-CARE
[2021-06-20 11:56] VITALS: BP 110/79; PULSE 79
== END 2021-06-20 12:06 | disposition home or self-care (01) ==
LOC: CATHEP 11:45 → 3SCARD 18:03 → CATHEP 06-20 12:06
PROVIDERS: ATTEND Internal Medicine Clinical Cardiac Electrophysiology
DX: I48.3 Typical atrial flutter (principal); I48.91 Unspecified atrial fibrillation; R00.0 Tachycardia, unspecified; E78.5 Hyperlipidemia, unspecified; I10 Essential (primary) hypertension; Z87.891 Personal history of nicotine dependence; Z80.9 Family history of malignant neoplasm, unspecified
CPT/HCPCS: 93623; 93662; 93653; C1759; C1894; C1769 ×2; C1766; C1760; C1730; C1732; J2250; J2710; J2001; J3010; J1644; J1170 ×2; J0131; J0330; J2704

== ENCOUNTER 2023-03-22 01:38 | Inpatient (IN) | payer OTHER ==
--- NOTE | 2023-03-22 02:58 | XR ---
EXAM: XR Chest, 2 Views CLINICAL HISTORY: ITS.REASON XR Reason: difficulty breathing TECHNIQUE: Frontal and lateral views of the chest. COMPARISON: No relevant prior studies available. FINDINGS: Lungs: Diffuse interstitial infiltrates with cardiomegaly consistent with mild pulmonary vascular congestion. No effusions. Pleural space: Unremarkable. No pneumothorax. Heart: See above. Mediastinum: Unremarkable. Normal mediastinal contour. Bones/joints: Unremarkable. No acute fracture. IMPRESSION: Mild pulmonary vascular congestion
[2023-03-22] MEDS ORDERED: SODIUM CHLORIDE 0.9% 1,000 ML IV STA (03:48)
[2023-03-22] MEDS ORDERED: DILTIAZEM DRIP BOLUS FROM BAG 1 MG SOLN IV ONE (03:49)
--- NOTE | 2023-03-22 03:50 | ED ---
SOB HPI - General Chief Complaint: Shortness of Breath Stated Complaint: SOB Time Seen by Provider: 03/22/23 03:38 Source: patient, RN notes reviewed, old records reviewed Mode of arrival: ambulatory Limitations: no limitations - History of Present Illness Initial Comments: This is a 62-year-old male to the emergency department for evaluation. Patient is safe for evaluation of significant shortness of breath COPD and CHF. History of A. fib with ablation, not currently on blood thinners and no recent change in medications no fevers no nausea vomiting or diarrhea. No recent illness and no other complaints MD Complaint: shortness of breath, chest pain, anxiety -: hour(s) Severity: severe Severity scale (1-10): 10 Consistency: constant Improves With: nothing Worsens With: exertion Context: anxiety, recent illness Associated Symptoms: chest pain Treatments Prior to Arrival: none - Related Data Home Medications Medication Instructions Recorded Confirmed No Known Home Medications 03/22/23 03/22/23 Allergies Allergy/AdvReac Type Severity Reaction Status Date / Time No Known Allergies Allergy Verified 03/22/23 07:36 Review of Systems ROS Statement: Those systems with pertinent positive or pertinent negative responses have been documented in the HPI. ROS Other: All systems not noted in ROS Statement are negative. Past Medical History Past Medical History: Atrial Fibrillation, Hyperlipidemia, Hypertension History of Any Multi-Drug Resistant Organisms: None Reported Past Surgical History: Cardiac Ablation Additional Past Surgical History / Comment(s): WISDOM TEETH REMOVED UNDER ANESTHESIA ABOUT 10 YEARS AGO Past Anesthesia/Blood Transfusion Reactions: No Reported Reaction Past Psychological History: No Psychological Hx Reported Smoking Status: Former smoker Past Alcohol Use History: None Reported Past Drug Use History: None Reported - Past Family History Father Family Medical History: Cancer Additional Family Medical History / Comment(s): COLON CANCER Son(s) Family Medical History: Cancer Additional Family Medical History / Comment(s): SKIN CANCER General Exam Limitations: no limitations General appearance: alert, anxious, in distress Head exam: Present: atraumatic, normocephalic, normal inspection Eye exam: Present: normal appearance, PERRL, EOMI. Absent: scleral icterus, conjunctival injection, periorbital swelling ENT exam: Present: normal exam, mucous membranes moist Neck exam: Present: normal inspection. Absent: tenderness, meningismus, lymphadenopathy Respiratory exam: Present: respiratory distress, accessory muscle use, decreased breath sounds, prolonged expiratory. Absent: wheezes, rales, rhonchi, stridor Cardiovascular Exam: Present: tachycardia, irregular rhythm, normal heart sounds. Absent: systolic murmur, diastolic murmur, rubs, gallop, clicks GI/Abdominal exam: Present: soft, normal bowel sounds. Absent: distended, tenderness, guarding, rebound, rigid Extremities exam: Present: normal inspection, full ROM, normal capillary refill. Absent: tenderness, pedal edema, joint swelling, calf tenderness Back exam: Present: normal inspection Neurological exam: Present: alert, oriented X3, CN II-XII intact Psychiatric exam: Present: normal affect, normal mood Skin exam: Present: warm, dry, intact, normal color. Absent: rash Course Vital Signs 03/22/23 03/22/23 03/22/23 01:51 04:13 04:30 Temperature 97.8 F Pulse Rate 75 158 H 152 H Respiratory 18 14 17 Rate Blood Pressure 127/93 108/79 107/91 O2 Sat by Pulse 96 95 98 Oximetry 03/22/23 03/22/23 03/22/23 05:00 05:30 05:42 Temperature Pulse Rate 113 H 120 H 88 Respiratory 18 16 16 Rate Blood Pressure 115/92 102/83 120/64 O2 Sat by Pulse 94 L 94 L 98 Oximetry 03/22/23 03/22/23 03/22/23 07:08 09:35 10:28 Temperature Pulse Rate 88 141 H 122 H Respiratory 26 H 18 18 Rate Blood Pressure 107/63 110/80 O2 Sat by Pulse 98 97 95 Oximetry 03/22/23 03/22/23 03/22/23 11:58 13:27 13:32 Temperature Pulse Rate 126 H 105 H 131 H Respiratory 18 22 27 H Rate Blood Pressure 94/71 94/71 94/71 O2 Sat by Pulse 96 Oximetry 03/22/23 03/22/23 03/23/23 17:54 19:49 00:43 Temperature 97.9 F 98.8 F Pulse Rate 131 H 149 H 112 H Respiratory 18 16 20 Rate Blood Pressure 109/81 103/81 98/76 O2 Sat by Pulse 98 97 98 Oximetry - Reevaluation(s) Reevaluation #1: 03/22/23 03:50 Medical records reviewed Reevaluation #2: 03/22/23 The patient's symptoms are mildly improved spoke blood pressure is labile, patient is short of breath Reevaluation #3: 03/22/23 Patient informed of results and questions have been answered Reevaluation #4: 03/22/23 03:50 Was pt. sent in by a medical professional or institution ([facility]IL[facility] Dominguez, [employer], urgent care, hospital, or senior care...) When possible be specific @ -no Did you speak to anyone other than the patient for history (EMS, parent, family, police, friend...)? What history was obtained from this source @ -no Did you review nursing and triage notes (agree or disagree)? Why? @ -agree Are old charts reviewed (outside hosp., previous admission, EMS record, old EKG, old radiological studies, urgent care reports/EKG's, senior care records)? Report findings @ -yes Differential Diagnosis (chest pain, altered mental status, abdominal pain women, abdominal pain men, vaginal bleeding, weakness, fever, dyspnea, syncope, headache, dizziness, GI bleed, back pain, seizure, CVA, palpatations, mental health, musculoskeletal)? @ -prior EKG interpreted by me (3pts min.). @ -yes X-rays interpreted by me (1pt min.). @ -yesshows CHF CT interpreted by me (1pt min.). @ -yes negative for acute disease does show CHF U/S interpreted by me (1pt. min.). @ -no What testing was considered but not performed or refused? (CT, X-rays, U/S, labs)? Why? @ -none What meds were considered but not given or refused? Why? @ -none Did you discuss the management of the patient with other professionals (professionals i.e. TWILA Dominguze, [employer], lab, RT, psych nurse, psych social worker, rail track maintainer, t eacher, flight communications officer, bottle caser)? Give summary @ -no Was smoking cessation discussed for >3mins.? @ -no Was critical care preformed (if so, how long)? @ -no Were there social determinants of health that impacted care today? How? (Homelessness, low income, unemployed, alcoholism, drug addiction, transportation, low edu. Level, literacy, decrease access to med. care, long term, rehab)? @ -none Was there de-escalation of care discussed even if they declined (Discuss DNR or withdrawal of care, Hospice)? DNR status @ -no What co-morbidities impacted this encounter? (DM, HTN, Smoking, COPD, CAD, Cancer, CVA, ARF, Chemo, Hep., AIDS, mental health diagnosis, sleep apnea, morbid obesity)? @ -none Was patient admitted / discharged? Hospital course, mention meds given and route, prescriptions, significant lab abnormalities, going to OR and other pertinent info. @ - 62 male to the emergency department for evaluation of severe shortness breath found to be in heart failure with significant nature fibrillation RVR, patient has improved rate control, still and arrhythmia, patient will admit for cardiology evaluation treatment Admitted Undiagnosed new problem with uncertain prognosis? @ -no Drug Therapy requiring intensive monitoring for toxicity (Heparin, Nitro, Insulin, Cardizem)? @ -no Were any procedures done? @ -no Diagnosis/symptom? @ -CHF A. fib with RVR Acute, or Chronic, or Acute on Chronic? @ -Acute Uncomplicated (without systemic symptoms) or Complicated (systemic symptoms)? @ -Complicated Side effects of treatment? @ -no Exacerbation, Progression, or Severe Exacerbation? @ -exacerbation Poses a threat to life or bodily function? How? (Chest pain, [place], [place], pneumonia, PE, COPD, DKA, ARF, appy, cholecystitis, CVA, Diverticulitis, Homicidal, Suicidal, threat to staff... and all critical care pts) @ -yes with significant arrhythmia and heart failure Medical Decision Making - Medical Decision Making 62 male to the emergency department for evaluation of severe shortness breath found to be in heart failure with significant nature fibrillation RVR, patient has improved rate control, still and arrhythmia, patient will admit for cardiology evaluation treatment - Lab Data Result diagrams: 03/22/23 03:23 03/22/23 03:23 Lab Results 03/22/23 03/22/23 03/22/23 Range/Units 03:23 03:23 03:23 WBC 14.9 H (3.8-10.6) k/uL RBC 4.86 (4.30-5.90) m/uL Hgb 14.8 (13.0-17.5) gm/dL Hct 45.1 (39.0-53.0) % MCV 92.8 (80.0-100.0) fL MCH 30.5 (25.0-35.0) pg MCHC 32.9 (31.0-37.0) g/dL RDW 13.4 (11.5-15.5) % Plt Count 221 (150-450) k/uL MPV 9.2 Neutrophils % 80 % Lymphocytes % 12 % Monocytes % 6 % Eosinophils % 1 % Basophils % 0 % Neutrophils # 11.9 H (1.3-7.7) k/uL Lymphocytes # 1.8 (1.0-4.8) k/uL Monocytes # 0.9 (0-1.0) k/uL Eosinophils # 0.1 (0-0.7) k/uL Basophils # 0.1 (0-0.2) k/uL PT 11.2 (10.0-12.5) sec INR 1.0 (<1.2) APTT 25.5 (22.0-30.0) sec D-Dimer 1.05 H (<0.60) mg/L FEU Sodium 139 (137-145) mmol/L Potassium 4.3 (3.5-5.1) mmol/L Chloride 110 H (98-107) mmol/L Carbon Dioxide 16 L (22-30) mmol/L Anion Gap 13 mmol/L BUN 18 (9-20) mg/dL Creatinine 0.79 (0.66-1.25) mg/dL Est GFR (CKD-EPI)AfAm >90 (>60 ml/min/1.73 sqM) Est GFR (CKD-EPI)NonAf >90 (>60 ml/min/1.73 sqM) Glucose 114 H (74-99) mg/dL Plasma Lactic Acid Kris (0.7-2.0) mmol/L Calcium 8.8 (8.4-10.2) mg/dL Phosphorus 3.5 (2.5-4.5) mg/dL Magnesium 1.8 (1.6-2.3) mg/dL Total Bilirubin 1.1 (0.2-1.3) mg/dL AST 34 (17-59) U/L ALT 33 (4-49) U/L Alkaline Phosphatase 92 (38-126) U/L Troponin I (0.000-0.034) ng/mL NT-Pro-B Natriuret Pep 2450 pg/mL Total Protein 6.6 (6.3-8.2) g/dL Albumin 3.9 (3.5-5.0) g/dL 03/22/23 03/22/23 Range/Units 03:23 03:23 WBC (3.8-10.6) k/uL RBC (4.30-5.90) m/uL Hgb (13.0-17.5) gm/dL Hct (39.0-53.0) % MCV (80.0-100.0) fL MCH (25.0-35.0) pg MCHC (31.0-37.0) g/dL RDW (11.5-15.5) % Plt Count (150-450) k/uL MPV Neutrophils % % Lymphocytes % % Monocytes % % Eosinophils % % Basophils % % Neutrophils # (1.3-7.7) k/uL Lymphocytes # (1.0-4.8) k/uL Monocytes # (0-1.0) k/uL Eosinophils # (0-0.7) k/uL Basophils # (0-0.2) k/uL PT (10.0-12.5) sec INR (<1.2) APTT (22.0-30.0) sec D-Dimer (<0.60) mg/L FEU Sodium (137-145) mmol/L Potassium (3.5-5.1) mmol/L Chloride (98-107) mmol/L Carbon Dioxide (22-30) mmol/L Anion Gap mmol/L BUN (9-20) mg/dL Creatinine (0.66-1.25) mg/dL Est GFR (CKD-EPI)AfAm (>60 ml/min/1.73 sqM) Est GFR (CKD-EPI)NonAf (>60 ml/min/1.73 sqM) Glucose (74-99) mg/dL Plasma Lactic Acid Kris 1.2 (0.7-2.0) mmol/L Calcium (8.4-10.2) mg/dL Phosphorus (2.5-4.5) mg/dL Magnesium (1.6-2.3) mg/dL Total Bilirubin (0.2-1.3) mg/dL AST (17-59) U/L ALT (4-49) U/L Alkaline Phosphatase (38-126) U/L Troponin I <0.012 (0.000-0.034) ng/mL NT-Pro-B Natriuret Pep pg/mL Total Protein (6.3-8.2) g/dL Albumin (3.5-5.0) g/dL - EKG Data -: EKG Interpreted by Me (EKG is A. fib with RVR 158 QRS 96 QTC 363) - Radiology Data Radiology results: report reviewed (, CT chest negative for PE), image reviewed Critical Care Time Critical Care Time: Yes Total Critical Care Time: 31 Disposition Clinical Impression: Congestive heart failure, Acute pulmonary edema, Atrial flutter with rapid ventricular response Disposition: ADMITTED IP TO THIS HOSP Condition: Serious Is patient prescribed a controlled substance at d/c from ED?: No Time of Disposition: 17:40
[2023-03-22] MEDS ORDERED: DILTIAZEM 125 MG in SODIUM CHLORIDE 0.9% 100 ML IV SCH ×2 (04:00→18:30)
[2023-03-22] MEDS ORDERED: METOPROLOL TARTRATE 5 MG/5 ML VIAL IVP STA (04:11)
[2023-03-22 04:42] LABS: Basophils # (A) 0.1 k/uL (0-0.2); Basophils % (A) 0 %; Eosinophils # (A) 0.1 k/uL (0-0.7); Eosinophils % (A) 1 %; HCT 45.1 % (39.0-53.0); HGB 14.8 gm/dL (13.0-17.5); Lymphocytes # (A) 1.8 k/uL (1.0-4.8); Lymphocytes % (A) 12 %; MCH 30.5 pg (25.0-35.0); MCHC 32.9 g/dL (31.0-37.0); MCV 92.8 fL (80.0-100.0); Mean Platelet Volume 9.2; Monocytes # (A) 0.9 k/uL (0-1.0); Monocytes % (A) 6 %; Neutrophils # (A) 11.9 k/uL (1.3-7.7); Neutrophils % (A) 80 %; Platelet Count 221 k/uL (150-450); RBC 4.86 m/uL (4.30-5.90); RDW 13.4 % (11.5-15.5); WBC 14.9 k/uL (3.8-10.6)
[2023-03-22 04:57] LABS: Partial Thromboplastin Time 25.5 sec (22.0-30.0); Prothrombin Time 11.2 sec (10.0-12.5)
[2023-03-22 05:08] LABS: ALT 33 U/L (4-49); AST 34 U/L (17-59); African American GFR (CKD) >90 (>60 ml/min/1.73 sqM); Albumin 3.9 g/dL (3.5-5.0); Alkaline Phosphatase 92 U/L (38-126); Anion Gap 13 mmol/L; Blood Urea Nitrogen 18 mg/dL (9-20); Calcium 8.8 mg/dL (8.4-10.2); Carbon Dioxide 16 mmol/L (22-30); Chloride 110 mmol/L (98-107); Glucose 114 mg/dL (74-99); Magnesium 1.8 mg/dL (1.6-2.3); Non-African American GFR(CKD) >90 (>60 ml/min/1.73 sqM); Phosphorus 3.5 mg/dL (2.5-4.5); Potassium 4.3 mmol/L (3.5-5.1); Sodium 139 mmol/L (137-145); Total Bilirubin 1.1 mg/dL (0.2-1.3); Total Protein 6.6 g/dL (6.3-8.2)
[2023-03-22 05:16] LABS: NT-Pro-B-Type Natriuretic Pept 2450 pg/mL
[2023-03-22] MEDS ORDERED: MORPHINE SULFATE 4 MG/ML SYRINGE IV PRN (05:37)
[2023-03-22] MEDS ORDERED: NALOXONE 0.4 MG/ML 1 ML VIAL IV PRN (05:37)
[2023-03-22] MEDS ORDERED: SODIUM CHLORIDE 0.9% 500 ML 500 ML IV STA (05:40)
[2023-03-22] MEDS: SODIUM CHLORIDE 0.9% 1,000 ML IV SCH (05:59)
[2023-03-22] MEDS ORDERED: HEPARIN SODIUM 1,000 UN/ML (10ML VL) IV PRN (06:16)
[2023-03-22] MEDS ORDERED: HEPARIN SODIUM 1,000 UN/ML (10ML VL) IV ONE (06:16)
[2023-03-22] MEDS ORDERED: HEPARIN SOD,PORK IN 0.45% NACL 25,000 UNIT in 0.45% NACL 1 250ML.BAG IV SCH (06:30)
--- NOTE | 2023-03-22 07:31 | CT ---
EXAMINATION TYPE: CT angio chest CT DLP: 821 mGycm, Automated exposure control for dose reduction was used. DATE OF EXAM: 03/22/2023 6:06 AM COMPARISON: Chest radiograph from same day. CLINICAL INDICATION:Male, 62 years old with history of PE; TECHNIQUE/CONTRAST: CTA scan of the thorax is performed with IV Contrast, patient injected [id number]-[id number] 100 cc. MIP images are created and reviewed these are created on a separate workstation.. FINDINGS: Pulmonary Artery: Small bilateral pleural effusions. Intralobular septal thickening. 2 scattered airs pace opacities are lower lungs bilaterally. There is no evidence for a filling defect within the pulm onary vasculature to suggest acute pulmonary embolism. The pulmonary artery is of normal size. Lungs/Pleura: No evidence of focal consolidation, pleural effusion or pneumothorax. Airway: Large airways are patent. Heart: Hours enlarged for size. There is coronary artery calcifications. Vasculature: No evidence of aortic aneurysm. Mediastinum: No gross evidence of adenopathy. Musculoskeletal: Mild degenerative disc disease changes are present throughout the thoracolumbar spin e. Soft Tissues: Unremarkable. Lower neck: No significant findings. Upper Abdomen: No significant findings. IMPRESSION: 1. No evidence of pulmonary embolism. 2. Cardiomegaly with bilateral pleural effusions and pulmonary vascular congestion correlate with ser um BNP. 3. Airspace opacities in the lower lungs bilaterally correlate for superimposed infectious process.
[2023-03-22] MEDS ORDERED: FUROSEMIDE 10 MG/ML 4 ML VIAL IV SCH (09:00)
[2023-03-22] MEDS ORDERED: DEXTROSE 5% IN WATER 100 ML with AMIODARONE 150 MG IV ONE (09:30)
[2023-03-22] MEDS ORDERED: AMIODARONE 360 MG in DEXTROSE 5% IN WATER 200 ML IV ONE ×2 (09:40)
[2023-03-22] MEDS: FUROSEMIDE 10 MG/ML 4 ML VIAL IV SCH ×2 (09:40→23:16)
[2023-03-22] MEDS: METOPROLOL TARTRATE 25 MG TAB PO SCH ×2 (09:40→23:00)
[2023-03-22] MEDS: APIXABAN 5 MG TAB PO SCH ×2 (09:40→23:00)
--- NOTE | 2023-03-22 10:22 | P.CRDCN ---
History of Present Illness History of present illness: HISTORY OF PRESENT ILLNESS: This is a 62-year-old male with a past medical history significant for atrial fibrillation, atrial flutter, cardiomyopathy, hypertension, hyperlipidemia, and a flutter ablation. Patient follows in the office with Dr. Alcala but has not b chari seen in the office since June 2021. We have been asked to see the patient in consultation for A. fib with RVR. Patient examined at the bedside in the emergency room. The patient presented to the hospital with a chief complaint of shortness of breath. He reports he has been feeling short of breath for the past 5-6 days and it has progressively gotten worse. He also reports having increased lower extremity edema. He denied having any chest pain or pressure. The patient was found to be in A. fib with RVR. He was started on IV heparin. He remains in atrial fibrillation with a heart rate in the 130s at the time of examination. The patient was previously prescribed Eliquis, metoprolol, atorvastatin, and losartan. The patient states he had lost 70 pounds and his blood pressure was improving so he was taken off his blood pressure medication. He states that he felt better so he decided to stop all of his medications including his anticoagulation. The patient states since that time he has gained back approximately 30 or 40 pounds. Patient's blood pressure on the low side with a systolic blood pressure around 104. * EKG reveals A. fib with RVR * Chest xray mild pulmonary vascular congestion * Chest CTA: Negative for pulmonary embolism. Cardiomegaly with bilateral pleural effusions and pulmonary vascular congestion. Airspace opacities in the lower lungs bilaterally. Correlate for superimposed infectious process. * Laboratory data: Significant for d-dimer 1.05. Troponin negative 2. ProBNP 2450. * Current home cardiac medications include none * Most recent echocardiogram obtained in April 2021 revealed ejection fraction 40-45%, mild MR, mild TR * Patient underwent stress echocardiogram in July 2018 which was negative for ischemia * Cardiac catheterization history: Unknown REVIEW OF SYSTEMS: At the time of my exam: CONSTITUTIONAL: Denies fever or chills. HEENT: Denies blurred vision, vision changes, or eye pain. Denies hemoptysis CARDIOVASCULAR: Denies chest pain. Denies orthopnea. Denies PND. Denies palpitations RESPIRATORY: Reports shortness of breath. GASTROINTESTINAL: Denies abdominal pain. Denies nausea or vomiting. HEMATOLOGIC: Denies bleeding disorders. GENITOURINARY: Denies any blood in urine. SKIN: Denies pruitis. Denies rash. PHYSICAL EXAM: VITAL SIGNS: Reviewed. GENERAL: Well-developed in no acute distress. HEENT: Head is normocephalic. Pupils are equal, round. Sclerae anicteric. Mucous membranes of the mouth are moist. Neck supple. No JVD or thyromegaly LUNGS: Respirations even and unlabored. Lungs diminished with bibasilar crackles HEART: Tachycardic. Irregular rate and rhythm. S1 and S2 heard. ABDOMEN: Soft. Nondistended. Nontender. EXTREMITIES: Normal range of motion. No clubbing or cyanosis. Peripheral pulses intact. 1-2+ bilateral lower extremity edema NEUROLOGIC: Awake and alert. Oriented x 3. ASSESSMENT: Shortness of breath Paroxysmal atrial fibrillation with RVR Acute congestive heart failure with reduced EF, 40-45% in April 2021 History of typical atrial flutter with previous ablation, June 2021 Cardiomyopathy, EF 40-45%, suspect nonischemic Hypertension Hyperlipidemia Medication noncompliance History of alcohol abuse, sober for approximately 6 years Former nicotine dependence PLAN: Obtain 2-D echo to assess cardiac structure and function Discontinue IV heparin Begin Eliquis 5 mg twice a day Begin metoprolol 25 mg twice a day Begin IV amiodarone bolus and drip per protocol Continue telemetry monitoring Begin IV Lasix 40 mg every 12 hours Daily weights, accurate I&O, and monitoring of kidney function Patient previously taking losartan at home. We'll hold at this time secondary to soft blood pressures. Medication compliance encouraged. Patient verbalized understanding. Check TSH Further recommendations pending patient's course Nurse practitioner note has been reviewed by physician. Signing provider agrees with the documented findings, assessment, and plan of care. Past Medical History Past Medical History: Atrial Fibrillation, Hyperlipidemia, Hypertension History of Any Multi-Drug Resistant Organisms: None Reported Past Surgical History: Cardiac Ablation Additional Past Surgical History / Comment(s): WISDOM TEETH REMOVED UNDER ANESTHESIA ABOUT 10 YEARS AGO Past Anesthesia/Blood Transfusion Reactions: No Reported Reaction Past Psychological History: No Psychological Hx Reported Smoking Status: Former smoker Past Alcohol Use History: None Reported Past Drug Use History: None Reported - Past Family History Father Family Medical History: Cancer Additional Family Medical History / Comment(s): COLON CANCER Son(s) Family Medical History: Cancer Additional Family Medical History / Comment(s): SKIN CANCER Medications and Allergies Home Medications Medication Instructions Recorded Confirmed Type No Known Home Medications 03/22/23 03/22/23 History Allergies Allergy/AdvReac Type Severity Reaction Status Date / Time No Known Allergies Allergy Verified 03/22/23 07:36 Physical Exam Vitals: Vital Signs Temp Pulse Resp BP Pulse Ox 03/22/23 09:35 141 H 18 110/80 97 03/22/23 07:08 88 26 H 107/63 98 03/22/23 05:42 88 16 120/64 98 03/22/23 05:30 120 H 16 102/83 94 L 03/22/23 05:00 113 H 18 115/92 94 L 03/22/23 04:30 152 H 17 107/91 98 03/22/23 04:13 158 H 14 108/79 95 03/22/23 01:51 97.8 F 75 18 127/93 96 Intake and Output 03/21/23 03/22/23 03/22/23 22:59 06:59 14:59 Intake Total 31.167 Balance 31.167 Intake: Intake, IV Titration 31.167 Amount Heparin Sod,Pork in 0.45% 31.167 NaCl 25,000 unit In 0.45 % NaCl 1 250ml.bag @ 9. 1859 UNITS/KG/HR 10 mls/ hr IV .Q24H [facility] Rx#: [id number] Other: Weight 108.862 kg Results 03/22/23 03:23 03/22/23 03:23 Cardiac Enzymes 03/22/23 03/22/23 03/22/23 Range/Units 03:23 03:23 08:16 AST 34 (17-59) U/L Troponin I <0.012 <0.012 (0.000-0.034) ng/mL Coagulation 03/22/23 Range/Units 03: PT 11.2 (10.0-12.5) sec APTT 25.5 (22.0-30.0) sec CBC 03/22/23 Range/Units 03: WBC 14.9 H (3.8-10.6) k/uL RBC 4.86 (4.30-5.90) m/uL Hgb 14.8 (13.0-17.5) gm/dL Hct 45.1 (39.0-53.0) % Plt Count 221 (150-450) k/uL Comprehensive Metabolic Panel 03/22/23 Range/Units 03:23 Sodium 139 (137-145) mmol/L Potassium 4.3 (3.5-5.1) mmol/L Chloride 110 H (98-107) mmol/L Carbon Dioxide 16 L (22-30) mmol/L BUN 18 (9-20) mg/dL Creatinine 0.79 (0.66-1.25) mg/dL Glucose 114 H (74-99) mg/dL Calcium 8.8 (8.4-10.2) mg/dL AST 34 (17-59) U/L ALT 33 (4-49) U/L Alkaline Phosphatase 92 (38-126) U/L Total Protein 6.6 (6.3-8.2) g/dL Albumin 3.9 (3.5-5.0) g/dL Current Medications Generic Name Dose Route Start Last Admin Trade Name Freq PRN Reason Stop Dose Admin Apixaban 5 mg 03/22/23 09:30 03/22/23 09:40 Apixaban 5 Mg Tab PO 5 mg BID [facility] Administration Protocol Atorvastatin Calcium 20 mg 03/22/23 21:00 Atorvastatin 20 Mg Tab PO HS [facility] Furosemide 40 mg 03/22/23 09:30 03/22/23 09:40 Furosemide 10 Mg/Ml 4 Ml Vial IV 40 mg Q12HR [facility] Administration Sodium Chloride 1,000 mls @ 20 mls/hr 03/22/23 05:45 03/22/23 05:59 Saline 0.9% IV 20 mls/hr .Q24H [facility] Administration Amiodarone HCl 450 mg/ 250 mls @ 16.667 mls/hr 03/22/23 15:40 Dextrose/Water IV 03/23/23 09:39 .Q15H [facility] Protocol 0.5 MG/MIN Amiodarone HCl 360 mg/ 200 mls @ 33.333 mls/hr 03/22/23 09:40 Dextrose/Water IV 03/22/23 15:39 .Q6H ONE Protocol 1 MG/MIN Metoprolol Tartrate 25 mg 03/22/23 09:30 03/22/23 09:40 Metoprolol Tartrate 25 Mg Tab PO 25 mg BID [facility] Administration Morphine Sulfate 4 mg 03/22/23 05:37 Morphine Sulfate 4 Mg/Ml Syringe IV Q4HR PRN Severe Pain (Scale 7 to 10) Naloxone HCl 0.2 mg 03/22/23 05:37 Naloxone 0.4 Mg/Ml 1 Ml Vial IV Q2M PRN Opioid Reversal Ondansetron HCl 4 mg 03/22/23 05:37 Ondansetron 4 Mg/2 Ml Vial IVP Q8HR PRN Nausea And Vomiting Intake and Output 03/21/23 03/22/23 03/22/23 22:59 06:59 14:59 Intake Total 31.167 Balance 31.167 Intake: Intake, IV Titration 31.167 Amount Heparin Sod,Pork in 0.45% 31.167 NaCl 25,000 unit In 0.45 % NaCl 1 250ml.bag @ 9. 1859 UNITS/KG/HR 10 mls/ hr IV .Q24H [facility] Rx#: [id number] Other: Weight 108.862 kg 03/22/23 03:23 03/22/23 03:23
--- NOTE | 2023-03-22 13:51 | P.HPIM ---
History of Present Illness H&P Date: 03/22/23 Chief Complaint: dyspnea 60-year-old man with a medical history of atrial fibrillation, atrial flutter, hypertension, hyperlipidemia, nonischemic cardiomyopathy with ejection fraction 40-45% present for evaluation of dyspnea. Patient says that he's been having trouble with breathing for the last several weeks, over the last several days his dyspnea has been significantly bad, especially when lying down at night. Last night, he was barely able to catch his breath nor was able to ambulatory bathroom without significant shortness of breath and therefore presented to the hospital for further evaluation. Patient denies fevers, chills, nausea, vomiting, chest pain, palpitations, syncope. Patient reports presyncope. Patient denies abdominal pain, constipation, diarrhea, dysuria, numbness/weakness of shortness. Patient does note increased lower extremity edema from baseline. Patient reports orthopnea. In the emergency room, patient was afebrile, 108/79, heart rate 158, 95% on 2 L nasal cannula. CBC demonstrates leukocytosis to 14.9, otherwise unremarkable. Basic metabolic panel shows CO2 of 16, no anion gap. Liver function tests are unremarkable. BNP was 2450. Progress 0.07. TSH is 1.7. Troponins less than 0.012 than trended to less than 0.012 upon to repeat checks. Coags were unremarkable. D-dimer was elevated at 1.05. Chest x-ray demonstrates findings of cardiomegaly, increased reticular opacities bilaterally with increased pulmonary vascularity. EKG demonstrated atrial fibrillation with rapid ventricular response, normal axis, no evidence of ischemia. CT angiography of the chest showed bilateral airspace opacities in the lower lungs with bilateral pleural effusions with pulmonary vascular congestion as well as cardia megaly. No evidence of pulmonary embolism. Patient was admitted to the hospital for further evaluation of A. fib with RVR as well as heart failure exacerbation. All Systems reviewed and pertinent positives and negatives noted in HPI, all other symptoms are negative Gen: in no apparent distress, resting comfortably in bed Eyes: PERRL, no scleral injection or icterus HENT: normocephalic, atraumatic, good hearing acuity, moist mucous membranes Neck: no tracheal deviation, full range of motion Resp: good air exchange, bilateral crackles in the posterior lung calderon abdomen chest, no wheezing CVS: good distal perfusion x 4, bilateral trace pitting edema, JVD is present, irregular rhythm, tachycardic, no murmurs GI: soft, NTTP, ND, no hepatosplenomegaly : no suprapubic tenderness, no CVAT, guadarrama catheter not present MSK: no clubbing, no cyanosis, no noted contractures of extremities Skin: no noted rashes, petechiae; temperature of skin is appropriate Neuro: moving all extremities without signs of weakness, CN II-XII intact Psych: cooperative, euthymic mood, insight and judgment intact Labs and imaging as above Assessment/plan: Acute hypoxemic respiratory failure Acute on chronic congestive heart failure with reduced ejection fraction, EF 40- 45% Paroxysmal atrial fibrillation with rapid ventricular response -Patient was admitted to cardiac selective with telemetry -Cardiology was consulted, their note reviewed: Patient was started on metoprolol 25 mg twice a day, amiodarone drip, heparin drip was discontinued and Apixiban and was started -I started the patient on Lasix 40 mg IV daily, cardiology increased it to 40 mg IV twice a day -Pro calcitonin was low, therefore antibiotics were deferred -Echocardiogram is pending -Strict intake/uptake, daily weights Hypertension Hyperlipidemia -Home medications reviewed and reconciled, patient did not appear to be taking any medications at home -Start atorvastatin 20 mg at night Patient is full code Past Medical History Past Medical History: Atrial Fibrillation, Hyperlipidemia, Hypertension History of Any Multi-Drug Resistant Organisms: None Reported Past Surgical History: Cardiac Ablation Additional Past Surgical History / Comment(s): WISDOM TEETH REMOVED UNDER ANESTHESIA ABOUT 10 YEARS AGO Past Anesthesia/Blood Transfusion Reactions: No Reported Reaction Past Psychological History: No Psychological Hx Reported Smoking Status: Former smoker Past Alcohol Use History: None Reported Past Drug Use History: None Reported - Past Family History Father Family Medical History: Cancer Additional Family Medical History / Comment(s): COLON CANCER Son(s) Family Medical History: Cancer Additional Family Medical History / Comment(s): SKIN CANCER Medications and Allergies Home Medications Medication Instructions Recorded Confirmed Type No Known Home Medications 03/22/23 03/22/23 History Allergies Allergy/AdvReac Type Severity Reaction Status Date / Time No Known Allergies Allergy Verified 03/22/23 07:36 Physical Exam Osteopathic Statement: *. No significant issues noted on an osteopathic structural exam other than those noted in the History and Physical/Consult. Vitals: Vital Signs Temp Pulse Resp BP Pulse Ox 03/22/23 13:32 131 H 27 H 94/71 03/22/23 13:27 105 H 22 94/71 03/22/23 11:58 126 H 18 94/71 96 03/22/23 10:28 122 H 18 95 03/22/23 09:35 141 H 18 110/80 97 03/22/23 07:08 88 26 H 107/63 98 03/22/23 05:42 88 16 120/64 98 03/22/23 05:30 120 H 16 102/83 94 L 03/22/23 05:00 113 H 18 115/92 94 L 03/22/23 04:30 152 H 17 107/91 98 03/22/23 04:13 158 H 14 108/79 95 03/22/23 01:51 97.8 F 75 18 127/93 96 Intake and Output 03/21/23 03/22/23 03/22/23 22:59 06:59 14:59 Intake Total 31.167 Balance 31.167 Intake: Intake, IV Titration 31.167 Amount Heparin Sod,Pork in 0.45% 31.167 NaCl 25,000 unit In 0.45 % NaCl 1 250ml.bag @ 9. 1859 UNITS/KG/HR 10 mls/ hr IV .Q24H [facility] Rx#: [id number] Other: Weight 108.862 kg Results CBC & Chem 7: 03/22/23 03:23 12 03:23 Labs: Abnormal Lab Results - Last 24 Hours (Table) 03/22/23 03/22/23 03/22/23 Range/Units 03:23 03:23 03:23 WBC 14.9 H (3.8-10.6) k/uL Neutrophils # 11.9 H (1.3-7.7) k/uL D-Dimer 1.05 H (<0.60) mg/L FEU Chloride 110 H (98-107) mmol/L Carbon Dioxide 16 L (22-30) mmol/L Glucose 114 H (74-99) mg/dL
[2023-03-22] MEDS: AMIODARONE 450 MG in DEXTROSE 5% IN WATER 250 ML IV SCH ×4 (17:22→23:03)
[2023-03-22] MEDS ORDERED: KETOROLAC 15 MG/ML 1 ML VIAL IVP STA (18:25)
[2023-03-22] MEDS: ATORVASTATIN 20 MG TAB PO SCH (23:00)
[2023-03-23] MEDS: ACETAMINOPHEN TAB 325 MG TAB PO PRN ×3 (00:51→22:40)
[2023-03-23] MEDS: SODIUM CHLORIDE 0.9% 1,000 ML IV SCH (04:56)
[2023-03-23] MEDS: APIXABAN 5 MG TAB PO SCH ×2 (09:02→20:02)
[2023-03-23] MEDS: AMIODARONE 200 MG TAB PO SCH ×2 (09:02→20:02)
[2023-03-23] MEDS: FUROSEMIDE 10 MG/ML 4 ML VIAL IV SCH ×2 (09:07→20:03)
[2023-03-23] MEDS: METOPROLOL TARTRATE 50 MG TAB PO SCH ×2 (09:08→20:02)
[2023-03-23 09:29] LABS: ALT 30 U/L (4-49); African American GFR (CKD) >90 (>60 ml/min/1.73 sqM); Albumin 3.5 g/dL (3.5-5.0); Anion Gap 12 mmol/L; Blood Urea Nitrogen 18 mg/dL (9-20); Calcium 8.8 mg/dL (8.4-10.2); Carbon Dioxide 17 mmol/L (22-30); Chloride 108 mmol/L (98-107); Glucose 112 mg/dL (74-99); Non-African American GFR(CKD) >90 (>60 ml/min/1.73 sqM); Phosphorus 3.6 mg/dL (2.5-4.5); Sodium 137 mmol/L (137-145); Total Bilirubin 1.2 mg/dL (0.2-1.3)
[2023-03-23 09:30] LABS: AST 41 U/L (17-59); Alkaline Phosphatase 63 U/L (38-126); Magnesium 1.9 mg/dL (1.6-2.3); Potassium 4.8 mmol/L (3.5-5.1); Total Protein 6.4 g/dL (6.3-8.2)
[2023-03-23 09:55] LABS: Basophils % (A) 0 %; Eosinophils # (A) 0.2 k/uL (0-0.7); Eosinophils % (A) 2 %; HCT 43.5 % (39.0-53.0); HGB 14.1 gm/dL (13.0-17.5); Lymphocytes # (A) 1.9 k/uL (1.0-4.8); Lymphocytes % (A) 17 %; MCH 30.9 pg (25.0-35.0); MCHC 32.5 g/dL (31.0-37.0); Mean Platelet Volume 9.7; Monocytes % (A) 9 %; Neutrophils # (A) 8.3 k/uL (1.3-7.7); Neutrophils % (A) 71 %; Platelet Count 185 k/uL (150-450); RBC 4.58 m/uL (4.30-5.90); RDW 13.5 % (11.5-15.5); WBC 11.7 k/uL (3.8-10.6)
--- NOTE | 2023-03-23 13:45 | P.PN ---
Subjective Progress Note Date: 03/23/23 Hospital Course: 60-year-old man with a medical history of atrial fibrillation, atrial flutter, hypertension, hyperlipidemia, nonischemic cardiomyopathy with ejection fraction 40-45% present for evaluation of dyspnea. In the emergency room, patient was afebrile, 108/79, heart rate 158, 95% on 2 L nasal cannula. CBC demonstrates leukocytosis to 14.9, otherwise unremarkable. Basic metabolic panel shows CO2 of 16, no anion gap. Liver function tests are unremarkable. BNP was 2450. Progress 0.07. TSH is 1.7. Troponins less than 0.012 than trended to less than 0.012 upon to repeat checks. Coags were unremarkable. D-dimer was elevated at 1.05. Chest x-ray demonstrates findings of cardiomegaly, increased reticular opacities bilaterally with increased pulmonary vascularity. EKG demonstrated atrial fibrillation with rapid ventricular response, normal axis, no evidence of ischemia. CT angiography of the chest showed bilateral airspace opacities in the lower lungs with bilateral pleural effusions with pulmonary vascular congestion as well as cardiomegaly. No evidence of pulmonary embolism. Patient was admitted to the hospital for further evaluation of A. fib with RVR as well as heart failure exacerbation. He is now on IV Lasix, amiodarone, Eliquis, and metoprolol. Subjective: Patient seen and examined at bedside. No acute events overnight. Still having orthopnea. Making urine. Pertinent positives and negatives as discussed above, a complete review of systems was performed and all other systems are negative. Vitals Signs Reviewed. General: nontoxic, no distress, appears at stated age Derm: warm, dry Head: atraumatic, normocephalic, symmetric Eyes: EOMI, no lid lag, anicteric sclera Mouth: no lip lesion, mucus membranes moist Cardiovascular: S1S2 irregular, tachycardic, no murmur Lungs: Bilateral rales , no accessory muscle use Abdominal: soft, nontender to palpation, no guarding, no appreciable organomegaly Ext: no gross muscle atrophy, 2+ pitting edema, no contractures Neuro: CN II-XI grossly intact, no focal neuro deficits Psych: Alert, oriented, appropriate affect Data Reviewed Today: Pertinent Labs: WBC 11.7, hemoglobin 14.1, bicarb 17, creatinine 0.70, anion gap 12 Imaging: No new imaging Assessment and Plan: Patient is critically ill, prognosis guarded Acute hypoxemic respiratory failure Acute on chronic congestive heart failure with reduced ejection fraction, EF 40- 45% Paroxysmal atrial fibrillation with rapid ventricular response -Cardiology following -Continue IV Lasix 40 mg to 12 hours, monitor electrolytes and renal function -Continue to wean oxygen -Continue Eliquis 5 mg twice a day, amiodarone 400 mg oral twice a day, metoprolol 50 mg twice a day -Echocardiogram is pending -Strict intake/uptake, daily weights Non-anion gap metabolic acidosis -Slowly improving -Unclear etiology -Repeat BMP tomorrow Hypertension Hyperlipidemia -Home medications reviewed and reconciled, patient did not appear to be taking any medications at home -Started on atorvastatin 20 mg at night this admission DVT ppx: Eliquis Code status: Full code Anticipated discharge place: Pending clinical course Anticipated discharge time: Pending clinical course Objective - Vital Signs Vital signs: Vital Signs Temp 97.7 F 03/23/23 12:10 Pulse 105 H 03/23/23 12:10 Resp 20 03/23/23 12:10 BP 99/80 03/23/23 12:10 Pulse Ox 97 03/23/23 12:10 FiO2 Intake & Output 03/22/23 03/23/23 03/23/23 18:59 06:59 18:59 Intake Total 31.167 94.724 244.781 Output Total 950 Balance 31.167 94.724 -705.219 Weight 108.862 kg Intake: Intake, IV Titration 31.167 94.724 244.781 Amount Amiodarone 450 mg In 94.724 169.448 Dextrose 5% in Water 250 ml @ 0.5 MG/MIN 16.667 mls/hr IV .Q15H [facility] Rx#: [id number] Diltiazem 125 mg In 75.333 Sodium Chloride 0.9% 100 ml @ 5 MG/HR 5 mls/hr IV .Q24H [facility] Rx#:[id number] Heparin Sod,Pork in 0.45% 31.167 NaCl 25,000 unit In 0.45 % NaCl 1 250ml.bag @ 9. 1859 UNITS/KG/HR 10 mls/ hr IV .Q24H [facility] Rx#: [id number] Output: Urine 950 - Labs CBC & Chem 7: 03/23/23 08:45 03/23/23 08:45 Labs: Abnormal Lab Results - Last 24 Hours (Table) 03/23/23 03/23/23 Range/Units 08:45 08:45 WBC 11.7 H (3.8-10.6) k/uL Neutrophils # 8.3 H (1.3-7.7) k/uL Chloride 108 H (98-107) mmol/L Carbon Dioxide 17 L (22-30) mmol/L Glucose 112 H (74-99) mg/dL
--- NOTE | 2023-03-23 13:52 | P.PN ---
Subjective Progress Note Date: 03/23/23 HISTORY OF PRESENT ILLNESS: This is a 62-year-old male with a past medical history significant for atrial fibrillation, atrial flutter, cardiomyopathy, hypertension, hyperlipidemia, and a flutter ablation. Patient follows in the office with Dr. Alcala but has not been seen in the office since June 2021. We have been asked to see the patient in consultation for A. fib with RVR. Patient examined at the bedside in the emergency room. The patient presented to the hospital with a chief complaint of shortness of breath. He reports he has been feeling short of breath for the past 5-6 days and it has progressively gotten worse. He also reports having increased lower extremity edema. He denied having any chest pain or pressure. The patient was found to be in A. fib with RVR. He was started on IV heparin. He remains in atrial fibrillation with a heart rate in the 130s at the time of examination. The patient was previously prescribed Eliquis, metoprolol, atorvastatin, and losartan. The patient states he had lost 70 pounds and his blood pressure was improving so he was taken off his blood pressure medication. He states that he felt better so he decided to stop all of his medications i ncluding his anticoagulation. The patient states since that time he has gained back approximately 30 or 40 pounds. Patient's blood pressure on the low side with a systolic blood pressure around 104. * EKG reveals A. fib with RVR * Chest xray mild pulmonary vascular congestion * Chest CTA: Negative for pulmonary embolism. Cardiomegaly with bilateral pleural effusions and pulmonary vascular congestion. Airspace opacities in the lower lungs bilaterally. Correlate for superimposed infectious process. * Laboratory data: Significant for d-dimer 1.05. Troponin negative 2. ProBNP 2450. * Current home cardiac medications include none * Most recent echocardiogram obtained in April 2021 revealed ejection fraction 40-45%, mild MR, mild TR * Patient underwent stress echocardiogram in July 2018 which was negative for ischemia * Cardiac catheterization history: Unknown 03/23 She is seen today in the emergency center waiting for a bed on the cardiac stepdown unit. Patient denies having any chest pain. Heart rate has been in the low 100s. Blood pressure 99/80, pulse ox 97% on 2 L. Repeat blood work reveals WBC 11.7. Hemoglobin 14.1. Sodium 137, potassium 4.8, BUN 18 creatinine 0.78. TSH 1.7. Patient has been maintained on IV amiodarone and IV Cardizem and patient has been started on eliquis. Patient is also on IV Lasix 40 mg every 12 hours. Echocardiogram is pending. PHYSICAL EXAM: VITAL SIGNS: Reviewed. GENERAL: Well-developed in no acute distress. HEENT: Head is normocephalic. Pupils are equal, round. Sclerae anicteric. Mucous membranes of the mouth are moist. Neck supple. No JVD or thyromegaly LUNGS: Respirations even and unlabored. Lungs diminished with bibasilar crackles HEART: Tachycardic. Irregular rate and rhythm. S1 and S2 heard. ABDOMEN: Soft. Nondistended. Nontender. EXTREMITIES: Normal range of motion. No clubbing or cyanosis. Peripheral pulses intact. 1-2+ bilateral lower extremity edema NEUROLOGIC: Awake and alert. Oriented x 3. ASSESSMENT: Paroxysmal atrial fibrillation with RVR Acute congestive heart failure with reduced EF, 40-45% in April 2021 History of typical atrial flutter with previous ablation, June 2021 Cardiomyopathy, EF 40-45%, suspect nonischemic Hypertension Hyperlipidemia Medication noncompliance History of alcohol abuse, sober for approximately 6 years Former nicotine dependence PLAN: Obtain 2-D echo to assess cardiac structure and function Continue Eliquis 5 mg twice a day Increase metoprolol to 50 mg twice a day Transition IV amiodarone to oral 400 mg twice daily Continue telemetry monitoring Continue IV Lasix 40 mg every 12 hours Daily weights, accurate I&O, and monitoring of kidney function Patient previously taking losartan at home. We'll hold at this time secondary to soft blood pressures. Medication compliance encouraged. Patient verbalized understanding. Further recommendations pending patient's course Nurse practitioner note has been reviewed by physician. Signing provider agrees with the documented findings, assessment, and plan of care. Objective - Vital Signs Vital signs: Vital Signs Temp 98.8 F 03/23/23 00:43 Pulse 109 H 03/23/23 05:28 Resp 20 03/23/23 05:28 BP 101/65 03/23/23 05:28 Pulse Ox 96 03/23/23 05:28 FiO2 Intake & Output 03/22/23 03/23/23 03/23/23 18:59 06:59 18:59 Intake Total 31.167 94.724 Balance 31.167 94.724 Intake: Intake, IV Titration 94.724 Amount Amiodarone 450 mg In 94.724 Dextrose 5% in Water 250 ml @ 0.5 MG/MIN 16.667 mls/hr IV .Q15H [facility] Rx#: [id number] Heparin Sod,Pork in 0.45% 31.167 NaCl 25,000 unit In 0.45 % NaCl 1 250ml.bag @ 9. 1859 UNITS/KG/HR 10 mls/ hr IV .Q24H [facility] Rx#: [id number] - Labs CBC & Chem 7: 03/23/23 08:45 03/23/23 08:45
[2023-03-23] MEDS: ATORVASTATIN 20 MG TAB PO SCH (20:02)
[2023-03-24] MEDS: APIXABAN 5 MG TAB PO SCH ×2 (08:35→20:39)
[2023-03-24] MEDS: AMIODARONE 200 MG TAB PO SCH ×2 (08:35→20:38)
[2023-03-24] MEDS: FUROSEMIDE 10 MG/ML 4 ML VIAL IV SCH ×2 (08:35→20:39)
[2023-03-24] MEDS: METOPROLOL TARTRATE 50 MG TAB PO SCH ×2 (08:35→20:39)
--- NOTE | 2023-03-24 10:58 | CA ---
Transthoracic Echo Report Name: Hilton Perez Age: 62 Gender: M : 1960 Exam Date: 03/23/2023 11:29 Exam Location: [facility] Ht (in): 73 Wt (lb): 240 Ordering Physician: Mai Patton Attending/Referring Phys: [id number], Pooja Bandoleer Packer Ethan Davis Procedure CPT: Indications: LV functio Cardiac Hx: Technical Quality: Fair Contrast 1: Total Dose (mL): Contrast 2: Total Dose (mL): MEASUREMENTS (Male / Female) Normal Values 2D ECHO LV Diastolic Diameter PLAX 5.5 cm 4.2 - 5.9 / 3.9 - 5.3 cm LV Systolic Diameter PLAX 4.4 cm IVS Diastolic Thickness 1.1 cm 0.6 - 1.0 / 0.6 - 0.9 cm LVPW Diastolic Thickness 1.3 cm 0.6 - 1.0 / 0.6 - 0.9 cm LV Relative Wall Thickness 0.4 RV Internal Dim ED PLAX 4.3 cm LVOT Diameter 2.6 cm Aortic Root Diameter 3.2 cm LA Systolic Diameter LX 3.7 cm 3.0 - 4.0 / 2.7 - 3.8 cm LV Diastolic Volume MOD BP 107.1 cm??? 67 - 155 / 56 - 104 cm??? LV Systolic Volume MOD BP 74.1 cm??? 22 - 58 / 19 - 49 cm??? LV Ejection Fraction MOD BP 30.9 % >= 55 % LV Cardiac Index MOD BP 1544.9 cm???/min???m??? LV Diastolic Volume MOD 4C 121.2 cm??? LV Systolic Volume MOD 4C 64.0 cm??? LV Ejection Fraction MOD 4C 47.2 % LV Cardiac Index MOD 4C 2676.2 cm???/min???m??? LV Diastolic Length 4C 7.5 cm LV Systolic Length 4C 6.9 cm LV Diastolic Volume MOD 2C 89.1 cm??? LV Systolic Volume MOD 2C 85.7 cm??? LV Ejection Fraction MOD 2C 3.9 % LV Cardiac Index MOD 2C 161.9 cm???/min???m??? LV Diastolic Length 2C 7.0 cm LV Systolic Length 2C 6.9 cm LA Volume 98.3 cm??? 18 - 58 / 22 - 52 cm??? LA Volume Index 41.0 cm???/m??? 16 - 28 cm???/m??? Ascending Aorta Diameter 3.2 cm DOPPLER AV Peak Velocity 75.9 cm/s AV Peak Gradient 2.3 mmHg LVOT Peak Velocity 44.5 cm/s LVOT Peak Gradient 0.8 mmHg LVOT Velocity Time Integral 7.5 cm LVOT Stroke Volume 40.0 cm??? LVOT Stroke Volume Index 17.2 ml/m??? LVOT Cardiac Index 1870.2 cm???/min???m??? AV Area Cont Eq pk 3.1 cm??? MV Peak Velocity 96.8 cm/s MV Peak Gradient 3.7 mmHg MV Mean Velocity 60.1 cm/s MV Mean Gradient 1.7 mmHg MV Velocity Time Integral 18.3 cm MR Peak Velocity 372.5 cm/s MR Peak Gradient 55.5 mmHg MV E' Velocity 6.3 cm/s TR Peak Velocity 302.6 cm/s TR Peak Gradient 36.6 mmHg Right Ventricular Systolic Press 41.6 mmHg PV Peak Velocity 64.5 cm/s PV Peak Gradient 1.7 mmHg FINDINGS Left Ventricle Normal LV size and wall thickness. Left ventricular ejection fraction is estimated at 30-35 %. Right Ventricle Moderate to severe right ventricular dilatation. RVSP= 42mmHg. Right Atrium Moderate to severe right atrial dilatation. RA area= 28cm2 Left Atrium Left atrial dilatation. LA volume index = 42ml/m2 Mitral Valve Structurally normal mitral valve. Moderate MR. Aortic Valve Trileaflet aortic valve. Trace AI. Tricuspid Valve Structurally normal tricuspid valve. Mild to moderate TR. Pulmonic Valve Structurally normal pulmonic valve. Mild to moderate PI. Pericardium Normal pericardium. Aorta Normal size aortic root and proximal ascending aorta. CONCLUSIONS Impaired LV function with an EF between 35-30-35% Moderate mitral regurgitation with a central jet. The mitral valve leaflets are intact Mild aortic insufficiency Moderate pulmonary hypertension [id number] tricuspid regurgitation Previewed by: Dr. Alexis Rajan MD (Electronically Signed) Final Date: 24 March 2023 10:57
--- NOTE | 2023-03-24 11:43 | P.PN ---
Subjective Progress Note Date: 03/24/23 Hospital Course: 60-year-old man with a medical history of atrial fibrillation, atrial flutter, hypertension, hyperlipidemia, nonischemic cardiomyopathy with ejection fraction 40-45% present for evaluation of dyspnea. In the emergency room, patient was afebrile, 108/79, heart rate 158, 95% on 2 L nasal cannula. CBC demonstrates leukocytosis to 14.9, otherwise unremarkable. Basic metabolic panel shows CO2 of 16, no anion gap. Liver function tests are unremarkable. BNP was 2450. Progress 0.07. TSH is 1.7. Troponins less than 0.012 than trended to less than 0.012 upon to repeat checks. Coags were unremarkable. D-dimer was elevated at 1.05. Chest x-ray demonstrates findings of cardiomegaly, increased reticular opacities bilaterally with increased pulmonary vascularity. EKG demonstrated atrial fibrillation with rapid ventricular response, normal axis, no evidence of ischemia. CT angiography of the chest showed bilateral airspace opacities in the lower lungs with bilateral pleural effusions with pulmonary vascular congestion as well as cardiomegaly. No evidence of pulmonary embolism. Patient was admitted to the hospital for further evaluation of A. fib with RVR as well as heart failure exacerbation. He is now on IV Lasix, amiodarone, Eliquis, and metoprolol. Farxiga also added. Echocardiogram showed LV systolic function 30 at 35%, moderate mitral regurgitation, moderate pulmonary hypertension, mild to moderate tricuspid regurgitation. Subjective: Patient seen and examined at bedside. No acute events overnight. Still having orthopnea. Making urine. Pertinent positives and negatives as discussed above, a complete review of systems was performed and all other systems are negative. Vitals Signs Reviewed. General: nontoxic, no distress, appears at stated age Derm: warm, dry Head: atraumatic, normocephalic, symmetric Eyes: EOMI, no lid lag, anicteric sclera Mouth: no lip lesion, mucus membranes moist Cardiovascular: S1S2 irregular, tachycardic, no murmur Lungs: Bilateral rales , no accessory muscle use Abdominal: soft, nontender to palpation, no guarding, no appreciable organomegaly Ext: no gross muscle atrophy, 2+ pitting edema, no contractures Neuro: CN II-XI grossly intact, no focal neuro deficits Psych: Alert, oriented, appropriate affect Data Reviewed Today: Pertinent Labs: CBC, BMP, magnesium pending, will be reviewed when available Imaging: Echocardiogram showed LV systolic function 30 at 35%, moderate mitral regurgitation, moderate pulmonary hypertension, mild to moderate tricuspid regurgitation. Assessment and Plan: Patient is critically ill, but improving. However, he is at high risk for decompensation. Acute on chronic congestive heart failure with reduced ejection fraction, EF 30- 35% Paroxysmal atrial fibrillation with rapid ventricular response Acute hypoxemic respiratory failure, resolved -Cardiology following, farxiga 10 mg daily added -Continue IV Lasix 40 mg to 12 hours, monitor electrolytes and renal function -Continue Eliquis 5 mg twice a day, amiodarone 400 mg oral twice a day, metoprol ol 50 mg twice a day -Strict intake/uptake, daily weights Non-anion gap metabolic acidosis -Slowly improving -Unclear etiology -Repeat BMP pending Hypertension Hyperlipidemia -Home medications reviewed and reconciled, patient did not appear to be taking any medications at home -Started on atorvastatin 20 mg at night this admission DVT ppx: Eliquis Code status: Full code Anticipated discharge place: Pending clinical course Anticipated discharge time: Pending clinical course Objective - Vital Signs Vital signs: Vital Signs Temp 97.6 F 03/24/23 08:00 Pulse 100 03/24/23 08:00 Resp 18 03/24/23 08:00 BP 101/68 03/24/23 08:00 Pulse Ox 99 03/24/23 08:45 FiO2 Intake & Output 03/23/23 03/24/23 03/24/23 18:59 06:59 18:59 Intake Total 244.781 240 Output Total 950 1625 200 Balance -705.219 -1625 40 Weight 118 kg Intake: Intake, IV Titration 244.781 Amount Amiodarone 450 mg In 169.448 Dextrose 5% in Water 250 ml @ 0.5 MG/MIN 16.667 mls/hr IV .Q15H CINDY Rx#: [id number] Diltiazem 125 mg In 75.333 Sodium Chloride 0.9% 100 ml @ 5 MG/HR 5 mls/hr IV .Q24H CINDY Rx#:[id number] Oral 240 Output: Urine 950 1625 200 Other: # Voids 1 - Labs CBC & Chem 7: 03/23/23 08:45 03/23/23 08:45
[2023-03-24] MEDS: ACETAMINOPHEN TAB 325 MG TAB PO PRN ×2 (11:49→22:40)
[2023-03-24 12:03] LABS: Basophils % (A) 0 %; Eosinophils % (A) 3 %; HCT 45.6 % (39.0-53.0); HGB 15.2 gm/dL (13.0-17.5); Lymphocytes # (A) 2.4 k/uL (1.0-4.8); Lymphocytes % (A) 22 %; MCHC 33.3 g/dL (31.0-37.0); Mean Platelet Volume 8.7; Monocytes # (A) 0.8 k/uL (0-1.0); Monocytes % (A) 8 %; Neutrophils # (A) 6.8 k/uL (1.3-7.7); Neutrophils % (A) 64 %; Platelet Count 244 k/uL (150-450); RBC 4.91 m/uL (4.30-5.90); RDW 13.5 % (11.5-15.5); WBC 10.6 k/uL (3.8-10.6)
[2023-03-24 12:04] LABS: Eosinophils # (A) 0.3 k/uL (0-0.7)
[2023-03-24 12:14] LABS: African American GFR (CKD) >90 (>60 ml/min/1.73 sqM); Anion Gap 9 mmol/L; Blood Urea Nitrogen 23 mg/dL (9-20); Calcium 9.1 mg/dL (8.4-10.2); Carbon Dioxide 26 mmol/L (22-30); Chloride 103 mmol/L (98-107); Magnesium 1.9 mg/dL (1.6-2.3); Non-African American GFR(CKD) 83 (>60 ml/min/1.73 sqM); Potassium 4.2 mmol/L (3.5-5.1); Sodium 138 mmol/L (137-145)
[2023-03-24 12:22] LABS: Glucose 109 mg/dL (74-99)
[2023-03-24] MEDS: DAPAGLIFLOZIN PROPANEDIOL 10 MG TABLET PO SCH (13:53)
--- NOTE | 2023-03-24 14:29 | P.PN ---
Subjective Progress Note Date: 03/24/23 HISTORY OF PRESENT ILLNESS: This is a 62-year-old male with a past medical history significant for atrial fibrillation, atrial flutter, cardiomyopathy, hypertension, hyperlipidemia, and a flutter ablation. Patient follows in the office with Dr. Alcala but has not been seen in the office since June 2021. We have been asked to see the patient in consultation for A. fib with RVR. Patient examined at the bedside in the emergency room. The patient presented to the hospital with a chief complaint of shortness of breath. He reports he has been feeling short of breath for the past 5-6 days and it has progressively gotten worse. He also reports having increased lower extremity edema. He denied having any chest pain or pressure. The patient was found to be in A. fib with RVR. He was started on IV heparin. He remains in atrial fibrillation with a heart rate in the 130s at the time of examination. The patient was previously prescribed Eliquis, metoprolol, atorvastatin, and losartan. The patient states he had lost 70 pounds and his blood pressure was improving so he was taken off his blood pressure medication. He states that he felt better so he decided to stop all of his medications i ncluding his anticoagulation. The patient states since that time he has gained back approximately 30 or 40 pounds. Patient's blood pressure on the low side with a systolic blood pressure around 104. * EKG reveals A. fib with RVR * Chest xray mild pulmonary vascular congestion * Chest CTA: Negative for pulmonary embolism. Cardiomegaly with bilateral pleural effusions and pulmonary vascular congestion. Airspace opacities in the lower lungs bilaterally. Correlate for superimposed infectious process. * Laboratory data: Significant for d-dimer 1.05. Troponin negative 2. ProBNP 2450. * Current home cardiac medications include none * Most recent echocardiogram obtained in April 2021 revealed ejection fraction 40-45%, mild MR, mild TR * Patient underwent stress echocardiogram in July 2018 which was negative for ischemia * Cardiac catheterization history: Unknown 03/23 Patient is seen today in the emergency center waiting for a bed on the cardiac stepdown unit. Patient denies having any chest pain. Heart rate has been in the low 100s. Blood pressure 99/80, pulse ox 97% on 2 L. Repeat blood work reveals WBC 11.7. Hemoglobin 14.1. Sodium 137, potassium 4.8, BUN 18 creatinine 0.78. TSH 1.7. Patient has been maintained on IV amiodarone and IV Cardizem and patient has been started on eliquis. Patient is also on IV Lasix 40 mg every 12 hours. Echocardiogram is pending. 03/24 Patient states he is still short of breath. He denies having any chest pain, no dizziness. He continues to have cough and wheezing. He also has lower extremity edema. Patient has been maintained on IV Lasix 40 mg every 12 hours as well IV amiodarone was transitioned to oral yesterday of 400 mg twice daily. Echocardiogram is pending. PHYSICAL EXAM: VITAL SIGNS: Reviewed. GENERAL: Well-developed in no acute distress. HEENT: Head is normocephalic. Pupils are equal, round. Sclerae anicteric. Mucous membranes of the mouth are moist. Neck supple. No JVD or thyromegaly LUNGS: Respirations even and unlabored. Lungs diminished with bibasilar crackles HEART: Irregular rate and rhythm. S1 and S2 heard. ABDOMEN: Soft. Nondistended. Nontender. EXTREMITIES: No clubbing or cyanosis. Peripheral pulses intact. 1+ bilateral lower extremity edema NEUROLOGIC: Awake and alert. Oriented x 3. ASSESSMENT: Paroxysmal atrial fibrillation with RVR Acute congestive heart failure with reduced EF, 40-45% in April 2021 History of typical atrial flutter with previous ablation, June 2021 Cardiomyopathy, EF 40-45%, suspect nonischemic Hypertension Hyperlipidemia Medication noncompliance History of alcohol abuse, sober for approximately 6 years Former nicotine dependence PLAN: Obtain 2-D echo to assess cardiac structure and function Continue Eliquis 5 mg twice a day Continue metoprolol 50 mg twice a day Continue amiodarone oral 400 mg twice daily Continue telemetry monitoring Continue IV Lasix 40 mg every 12 hours Daily weights, accurate I&O, and monitoring of kidney function Patient previously taking losartan at home. We'll hold at this time secondary to soft blood pressures. Further recommendations pending patient's course Nurse practitioner note has been reviewed by physician. Signing provider agrees with the documented findings, assessment, and plan of care. Objective - Vital Signs Vital signs: Vital Signs Temp 97.6 F 03/24/23 08:00 Pulse 100 03/24/23 08:00 Resp 18 03/24/23 08:00 BP 101/68 03/24/23 08:00 Pulse Ox 99 03/24/23 08:45 FiO2 Intake & Output 03/23/23 03/24/23 03/24/23 18:59 06:59 18:59 Intake Total 244.781 240 Output Total 950 1625 200 Balance -705.219 -1625 40 Weight 118 kg Intake: Intake, IV Titration 244.781 Amount Amiodarone 450 mg In 169.448 Dextrose 5% in Water 250 ml @ 0.5 MG/MIN 16.667 mls/hr IV .Q15H CINDY Rx#: [id number] Diltiazem 125 mg In 75.333 Sodium Chloride 0.9% 100 ml @ 5 MG/HR 5 mls/hr IV .Q24H CINDY Rx#:[id number] Oral 240 Output: Urine 950 1625 200 Other: # Voids 1 - Labs CBC & Chem 7: 03/24/23 11:47 03/24/23 11:47
[2023-03-24] MEDS: SODIUM CHLORIDE 0.9% 1,000 ML IV SCH (15:26)
[2023-03-24] MEDS: MELATONIN 3 MG TABLET PO SCH (20:39)
[2023-03-24] MEDS: ATORVASTATIN 20 MG TAB PO SCH (20:39)
[2023-03-25] MEDS: ONDANSETRON 4 MG/2 ML VIAL IVP PRN ×2 (00:35→21:47)
[2023-03-25] MEDS: SODIUM CHLORIDE 0.9% 1,000 ML IV SCH (07:00)
[2023-03-25] MEDS: DAPAGLIFLOZIN PROPANEDIOL 10 MG TABLET PO SCH (07:54)
[2023-03-25] MEDS: FUROSEMIDE 10 MG/ML 4 ML VIAL IV SCH (07:54)
[2023-03-25] MEDS: AMIODARONE 200 MG TAB PO SCH ×2 (07:54→20:23)
[2023-03-25] MEDS: METOPROLOL TARTRATE 50 MG TAB PO SCH ×2 (07:54→20:23)
[2023-03-25] MEDS: APIXABAN 5 MG TAB PO SCH ×2 (07:54→20:23)
[2023-03-25] MEDS: ACETAMINOPHEN TAB 325 MG TAB PO PRN ×2 (07:57→16:25)
[2023-03-25 09:46] LABS: African American GFR (CKD) 81 (>60 ml/min/1.73 sqM); Anion Gap 11 mmol/L; Blood Urea Nitrogen 26 mg/dL (9-20); Calcium 9.2 mg/dL (8.4-10.2); Carbon Dioxide 27 mmol/L (22-30); Chloride 102 mmol/L (98-107); Glucose 111 mg/dL (74-99); Non-African American GFR(CKD) 70 (>60 ml/min/1.73 sqM); Sodium 140 mmol/L (137-145)
--- NOTE | 2023-03-25 12:32 | P.PN ---
Subjective Progress Note Date: 03/25/23 Hospital Course: 60-year-old man with a medical history of atrial fibrillation, atrial flutter, hypertension, hyperlipidemia, nonischemic cardiomyopathy with ejection fraction 40-45% present for evaluation of dyspnea. In the emergency room, patient was afebrile, 108/79, heart rate 158, 95% on 2 L nasal cannula. CBC demonstrates leukocytosis to 14.9, otherwise unremarkable. Basic metabolic panel shows CO2 of 16, no anion gap. Liver function tests are unremarkable. BNP was 2450. Progress 0.07. TSH is 1.7. Troponins less than 0.012 than trended to less than 0.012 upon to repeat checks. Coags were unremarkable. D-dimer was elevated at 1.05. Chest x-ray demonstrates findings of cardiomegaly, increased reticular opacities bilaterally with increased pulmonary vascularity. EKG demo nstrated atrial fibrillation with rapid ventricular response, normal axis, no evidence of ischemia. CT angiography of the chest showed bilateral airspace opacities in the lower lungs with bilateral pleural effusions with pulmonary vascular congestion as well as cardiomegaly. No evidence of pulmonary embolism. Patient was admitted to the hospital for further evaluation of A. fib with RVR as well as heart failure exacerbation. He is now on IV Lasix, amiodarone, Eliquis, and metoprolol. Farxiga also added. Echocardiogram showed LV systolic function 30 at 35%, moderate mitral regurgitation, moderate pulmonary hypertension, mild to moderate tricuspid regurgitation. Subjective: Patient seen and examined at bedside. No acute events overnight. He claims that he got 2 hours of sleep lying flat on his bed. Orthopnea is definitely improved. However this morning, patient had increased chest tightness. EKG obtained. Pertinent positives and negatives as discussed above, a complete review of systems was performed and all other systems are negative. Vitals Signs Reviewed. General: nontoxic, no distress, appears at stated age Derm: warm, dry Head: atraumatic, normocephalic, symmetric Eyes: EOMI, no lid lag, anicteric sclera Mouth: no lip lesion, mucus membranes moist Cardiovascular: S1S2 irregular, no murmur Lungs: Bibasilar rales , no accessory muscle use Abdominal: soft, nontender to palpation, no guarding, no appreciable organomegaly Ext: no gross muscle atrophy, 2+ pitting edema improved, no contractures Neuro: CN II-XI grossly intact, no focal neuro deficits Psych: Alert, oriented, appropriate affect Data Reviewed Today: 96% on RA Pertinent Labs: Sodium 140, potassium 4, creatinine 1.13, magnesium 2 Imaging: EKG independently interpreted, atrial fibrillation with T-wave inversions noted in the lateral leads, otherwise also nonspecific T-wave abnormalities Assessment and Plan: Acute on chronic congestive heart failure with reduced ejection fraction, EF 30- 35% Paroxysmal atrial fibrillation with rapid ventricular response, now rate controlled Acute hypoxemic respiratory failure, resolved -Cardiology following, farxiga 10 mg daily -Continue IV Lasix switched to oral 40 mg q12 hours, monitor electrolytes and renal function closely -Continue Eliquis 5 mg twice a day, amiodarone 400 mg oral twice a day, metoprolol 50 mg twice a day -Strict intake/uptake, daily weights Chest pain -Possibly secondary to his atrial fibrillation as well as CHF -Continue telemetry -Troponin ordered -Cardiology to see the patient Non-anion gap metabolic acidosis, resolved Hypertension Hyperlipidemia -Home medications reviewed and reconciled, patient did not appear to be taking any medications at home -Started on atorvastatin 20 mg at night this admission DVT ppx: Eliquis Code status: Full code Anticipated discharge place: Pending clinical course Anticipated discharge time: Pending clinical course Objective - Vital Signs Vital signs: Vital Signs Temp 97.8 F 03/25/23 07:58 Pulse 96 03/25/23 11:00 Resp 20 03/25/23 11:00 BP 92/64 03/25/23 11:00 Pulse Ox 96 03/25/23 11:00 FiO2 Intake & Output 03/24/23 03/25/23 03/25/23 18:59 06:59 18:59 Intake Total 930 Output Total 950 2100 1100 Balance - -1100 Weight 117 kg Intake: Oral 930 Output: Urine 950 2100 1100 Other: Voiding Method Urinal - Labs CBC & Chem 7: 03/24/23 11:47 03/25/23 09:00 Labs: Abnormal Lab Results - Last 24 Hours (Table) 03/25/23 Range/Units 09:00 BUN 26 H (9-20) mg/dL Glucose 111 H (74-99) mg/dL
[2023-03-25] MEDS: SPIRONOLACTONE 25 MG TAB PO SCH (13:26)
--- NOTE | 2023-03-25 14:10 | P.PN ---
Subjective Progress Note Date: 03/25/23 HISTORY OF PRESENT ILLNESS: This is a 62-year-old male with a past medical history significant for atrial fibrillation, atrial flutter, cardiomyopathy, hypertension, hyperlipidemia, and a flutter ablation. Patient follows in the office with Dr. Alcala but has not been seen in the office since June 2021. We have been asked to see the patient in consultation for A. fib with RVR. Patient examined at the bedside in the emergency room. The patient presented to the hospital with a chief complaint of shortness of breath. He reports he has been feeling short of breath for the past 5-6 days and it has progressively gotten worse. He also reports having increased lower extremity edema. He denied having any chest pain or pressure. The patient was found to be in A. fib with RVR. He was started on IV heparin. He remains in atrial fibrillation with a heart rate in the 130s at the time of examination. The patient was previously prescribed Eliquis, metoprolol, atorvastatin, and losartan. The patient states he had lost 70 pounds and his blood pressure was improving so he was taken off his blood pressure medication. He states that he felt better so he decided to stop all of his medications i ncluding his anticoagulation. The patient states since that time he has gained back approximately 30 or 40 pounds. Patient's blood pressure on the low side with a systolic blood pressure around 104. * EKG reveals A. fib with RVR * Chest xray mild pulmonary vascular congestion * Chest CTA: Negative for pulmonary embolism. Cardiomegaly with bilateral pleural effusions and pulmonary vascular congestion. Airspace opacities in the lower lungs bilaterally. Correlate for superimposed infectious process. * Laboratory data: Significant for d-dimer 1.05. Troponin negative 2. ProBNP 2450. * Current home cardiac medications include none * Most recent echocardiogram obtained in April 2021 revealed ejection fraction 40-45%, mild MR, mild TR * Patient underwent stress echocardiogram in July 2018 which was negative for ischemia * Cardiac catheterization history: Unknown 03/23 Patient is seen today in the emergency center waiting for a bed on the cardiac stepdown unit. Patient denies having any chest pain. Heart rate has been in the low 100s. Blood pressure 99/80, pulse ox 97% on 2 L. Repeat blood work reveals WBC 11.7. Hemoglobin 14.1. Sodium 137, potassium 4.8, BUN 18 creatinine 0.78. TSH 1.7. Patient has been maintained on IV amiodarone and IV Cardizem and patient has been started on eliquis. Patient is also on IV Lasix 40 mg every 12 hours. Echocardiogram is pending. 03/24 Patient states he is still short of breath. He denies having any chest pain, no dizziness. He continues to have cough and wheezing. He also has lower extremity edema. Patient has been maintained on IV Lasix 40 mg every 12 hours as well IV amiodarone was transitioned to oral yesterday of 400 mg twice daily. Echocardiogram is pending. 03/25 Patient states he is still short of breath but woke up this morning feeling much better in about a couple hours later he started having increasing shortness of breath. Patient remains in atrial fibrillation with heart rate in the 90s.. Lasix has been changed to oral by primary. The blood work reveals electrolytes normal, BUN 27 creatinine 1.13. Blood pressure is 92/64. PHYSICAL EXAM: VITAL SIGNS: Reviewed. GENERAL: Well-developed in no acute distress. HEENT: Head is normocephalic. Pupils are equal, round. Sclerae anicteric. Mucous membranes of the mouth are moist. Neck supple. No JVD or thyromegaly LUNGS: Respirations even and unlabored. Lungs diminished with bibasilar crackles HEART: Irregular rate and rhythm. S1 and S2 heard. ABDOMEN: Soft. Nondistended. Nontender. EXTREMITIES: No clubbing or cyanosis. Peripheral pulses intact. 1+ bilateral lower extremity edema NEUROLOGIC: Awake and alert. Oriented x 3. ASSESSMENT: Paroxysmal atrial fibrillation with RVR Acute congestive heart failure with reduced EF, 40-45% in April 2021 History of typical atrial flutter with previous ablation, June 2021 Cardiomyopathy, EF 40-45%, suspect nonischemic Hypertension Hyperlipidemia Medication noncompliance History of alcohol abuse, sober for approximately 6 years Former nicotine dependence PLAN: Continue Eliquis 5 mg twice a day Continue metoprolol 50 mg twice a day Continue amiodarone oral 400 mg twice daily Continue telemetry monitoring Continue Lasix transitioned to oral 40 mg every 12 hours Daily weights, accurate I&O, and monitoring of kidney function Patient previously taking losartan at home. We'll hold at this time secondary to soft blood pressures. Tentatively schedule patient for DAMON and cardioversion tomorrow Nothing by mouth after midnight Repeat blood work in the morning Further recommendations pending patient's course Nurse practitioner note has been reviewed by physician. Signing provider agrees with the documented findings, assessment, and plan of care. Objective - Vital Signs Vital signs: Vital Signs Temp 97.8 F 03/25/23 07:58 Pulse 96 03/25/23 11:00 Resp 20 03/25/23 11:00 BP 92/64 03/25/23 11:00 Pulse Ox 96 03/25/23 11:00 FiO2 Intake & Output 03/24/23 03/25/23 03/25/23 18:59 06:59 18:59 Intake Total 930 Output Total 950 2100 1100 Balance - Weight 117 kg Intake: Oral 930 Output: Urine 950 2100 1100 Other: Voiding Method Urinal - Labs CBC & Chem 7: 03/24/23 11:47 03/25/23 09:00 Labs: Abnormal Lab Results - Last 24 Hours (Table) 03/25/23 Range/Units 09:00 BUN 26 H (9-20) mg/dL Glucose 111 H (74-99) mg/dL
[2023-03-25] MEDS: FUROSEMIDE 40 MG TAB PO SCH (15:27)
[2023-03-25] MEDS: ATORVASTATIN 20 MG TAB PO SCH (20:23)
[2023-03-25] MEDS: MELATONIN 3 MG TABLET PO SCH (20:23)
[2023-03-25] MEDS ORDERED: QUEtiapine 50 MG TAB PO STA (23:12)
[2023-03-26] MEDS: FUROSEMIDE 40 MG TAB PO SCH ×2 (06:31→14:18)
[2023-03-26] MEDS: APIXABAN 5 MG TAB PO SCH ×2 (06:31→19:54)
[2023-03-26] MEDS: SPIRONOLACTONE 25 MG TAB PO SCH (06:31)
[2023-03-26] MEDS: DAPAGLIFLOZIN PROPANEDIOL 10 MG TABLET PO SCH (06:31)
[2023-03-26] MEDS: AMIODARONE 200 MG TAB PO SCH ×2 (06:31→19:55)
[2023-03-26] MEDS: METOPROLOL TARTRATE 50 MG TAB PO SCH ×2 (06:32→19:55)
[2023-03-26 09:00] LABS: African American GFR (CKD) 89 (>60 ml/min/1.73 sqM); Anion Gap 11 mmol/L; Blood Urea Nitrogen 29 mg/dL (9-20); Carbon Dioxide 23 mmol/L (22-30); Chloride 103 mmol/L (98-107); Glucose 97 mg/dL (74-99); Non-African American GFR(CKD) 77 (>60 ml/min/1.73 sqM); Potassium 4.4 mmol/L (3.5-5.1); Sodium 137 mmol/L (137-145)
[2023-03-26] MEDS ORDERED: LACTATED RINGERS 1,000 ML IV ONE (10:50)
[2023-03-26] MEDS ORDERED: LIDOCAINE 2% (PF) 20 MG/ML 5 ML VIAL ONE (10:55)
[2023-03-26] MEDS ORDERED: PROPOFOL 10 MG/ML 20 ML VIAL IV ONE (10:55)
--- NOTE | 2023-03-26 11:14 | P.PN ---
Subjective Progress Note Date: 03/26/23 PROGRESS NOTE The patient is a 62-year-old male with known history of atrial arrhythmia presented to symptoms of shortness of breath, CHF and evidence of atrial fibrillation with rapid ventricular response. He was found to have an impaired left ventricle systolic function. He persisted in having dyspnea but no chest discomfort. His blood pressure is on the low side. He is in atrial fibrillation. He denies any nausea and vomiting, no chest discomfort, no syncope. Medications: Amiodarone 400 mg twice a day, Lipitor 20 mg daily, Lasix 40 mg twice a day, metoprolol 50 mg twice a day, Aldactone 25 mg daily,Eliquis 5 mg twice a day, Farxiga 10 mg daily PHYSICAL EXAMINATION: Blood pressure 88/60 heart rate 90 LUNGS: Clear to auscultation HEART: Irregular rate and rhythm, S1, S2. No S3. Systolic ejection murmur ABDOMEN: Soft, nontender, no organomegaly EXTREMETIES: Trace edema LAB: BUN 29, creatinine 1.04, potassium 4.4 IMPRESSION: 1. Atrial fibrillation, ventricular response under better control 2. Cardiomyopathy probably related to the atrial fibrillation, with symptoms of CHF 3. Low blood pressure 4. Hyperlipidemia PLAN: 1. Continue present therapy 2. Proceed with DAMON guided cardioversion in view of the blood pressure in the symptoms of CHF 3. Continue amiodarone 4. Depending on his progress further recommendations will be made Objective - Vital Signs Vital signs: Vital Signs Temp 98 F 03/26/23 08:00 Pulse 89 03/26/23 10:51 Resp 16 03/26/23 10:51 BP 88/62 03/26/23 09:43 Pulse Ox 95 03/26/23 10:51 FiO2 Intake & Output 03/25/23 03/26/23 03/26/23 18:59 06:59 18:59 Output Total 1400 700 Balance -1400 -700 Weight 117.5 kg Output: Urine 1400 700 Other: Voiding Method Urinal Urinal - Labs CBC & Chem 7: 03/24/23 11:47 03/26/23 07:25 Labs: Abnormal Lab Results - Last 24 Hours (Table) 03/26/23 Range/Units 07:25 BUN 29 H (9-20) mg/dL
[2023-03-26] MEDS ORDERED: SODIUM CHLORIDE 0.9% 1,000 ML IV SCH (11:15)
--- NOTE | 2023-03-26 11:17 | P.PCN ---
Date of Procedure: 03/26/23 Description of Procedure: Indication: Atrial fibrillation Procedure Description: After explaining the procedure to the patient, it's risk and complications, blood pressure, heart rate and O2 saturation were monitored. The throat was sprayed with Cetacaine. Patient received sedation per anesthesia department. The probe was introduced into the esophagus without difficulty. Images were obtained. Following that, the probe was removed. There was no immediate complication. Findings: Left atrial size is dilated, left atrial appendage is normal. Left ventricular size is normal with evidence of global hypokinesis. Ejection fraction 30-35%. Aortic valve revealed mild fibrocalcific changes. Mitral valve appears to be normal. Tricuspid valve is normal. No pericardial effusion was noted. Descending thoracic aorta appears to be normal. Contrast bubble study revealed no shunting across the intra-atrial septum. Doppler: Pulse wave and color Doppler were obtained, revealed moderate mitral with mild tricuspid regurgitation, there was no shunting across the interatrial septum. Conclusion: 1. Dilated left atrium with normal appearance of the left atrial appendage 2. Severe global hypokinesis of the left ventricle 3. Moderate mitral with mild tricuspid regurgitation 4. Normal appearance of the descending thoracic aorta 5. No shunting across the intra-atrial septum Cardioversion: After obtaining DAMON in a sedated state a synchronized biphasic cardioversion using 150 J was performed with yarsanism of sinus mechanism, there was no immediate complications.
--- NOTE | 2023-03-26 12:38 | P.PN ---
Subjective Progress Note Date: 03/26/23 Hospital Course: 60-year-old man with a medical history of atrial fibrillation, atrial flutter, hypertension, hyperlipidemia, nonischemic cardiomyopathy with ejection fraction 40-45% present for evaluation of dyspnea. In the emergency room, patient was afebrile, 108/79, heart rate 158, 95% on 2 L nasal cannula. CBC demonstrates leukocytosis to 14.9, otherwise unremarkable. Basic metabolic panel shows CO2 of 16, no anion gap. Liver function tests are unremarkable. BNP was 2450. Progress 0.07. TSH is 1.7. Troponins less than 0.012 than trended to less than 0.012 upon to repeat checks. Coags were unremarkable. D-dimer was elevated at 1.05. Chest x-ray demonstrates findings of cardiomegaly, increased reticular opacities bilaterally with increased pulmonary vascularity. EKG dem onstrated atrial fibrillation with rapid ventricular response, normal axis, no evidence of ischemia. CT angiography of the chest showed bilateral airspace opacities in the lower lungs with bilateral pleural effusions with pulmonary vascular congestion as well as cardiomegaly. No evidence of pulmonary embolism. Patient was admitted to the hospital for further evaluation of A. fib with RVR as well as heart failure exacerbation. He is now on IV Lasix, amiodarone, Eliquis, and metoprolol. Farxiga also added. Echocardiogram showed LV systolic function 30 at 35%, moderate mitral regurgitation, moderate pulmonary hypertension, mild to moderate tricuspid regurgitation. Underwent successful DAMON cardioversion. Subjective: Patient seen and examined at bedside. No acute events overnight. Denies any further chest tightness. Pertinent positives and negatives as discussed above, a complete review of systems was performed and all other systems are negative. Vitals Signs Reviewed. General: nontoxic, no distress, appears at stated age Derm: warm, dry Head: atraumatic, normocephalic, symmetric Eyes: EOMI, no lid lag, anicteric sclera Mouth: no lip lesion, mucus membranes moist Cardiovascular: S1S2 regular, no murmur Lungs: Bibasilar rales , no accessory muscle use Abdominal: soft, nontender to palpation, no guarding, no appreciable organomegaly Ext: no gross muscle atrophy, 2+ pitting edema improved, no contractures Neuro: CN II-XI grossly intact, no focal neuro deficits Psych: Alert, oriented, appropriate affect Data Reviewed Today: Pertinent Labs: Sodium 137, creatinine 1.04, magnesium 2 Imaging: DAMON showed dilated left atrium, severe global hypokinesia of left ventr icle, moderate mitral and mild tricuspid regurgitation, no shunting across the interatrial septum Assessment and Plan: Acute on chronic congestive heart failure with reduced ejection fraction, EF 30- 35%, resolving Paroxysmal atrial fibrillation with rapid ventricular response, status post cardioversion, in sinus Acute hypoxemic respiratory failure, resolved -Cardiology note reviewed, successful DAMON with cardioversion -Continue oral Lasix 40 mg q12 hours, monitor electrolytes and renal function closely -Continue Eliquis 5 mg twice a day, amiodarone 400 mg oral twice a day, metoprolol 50 mg twice a day -Strict intake/uptake, daily weights -farxiga 10 mg daily Chest pain, resolved Non-anion gap metabolic acidosis, resolved Hypertension Hyperlipidemia -Home medications reviewed and reconciled, patient did not appear to be taking any medications at home -Started on atorvastatin 20 mg at night this admission DVT ppx: Eliquis Code status: Full code Anticipated discharge place: Pending clinical course Anticipated discharge time: Pending clinical course Objective - Vital Signs Vital signs: Vital Signs Temp 98 F 03/26/23 08:00 Pulse 91 03/26/23 12:19 Resp 18 03/26/23 12:19 BP 94/70 03/26/23 12:15 Pulse Ox 94 L 03/26/23 12:15 FiO2 Intake & Output 03/25/23 03/26/23 03/26/23 18:59 06:59 18:59 Intake Total 200 Output Total 1400 700 Balance -1400 -700 200 Weight 117.5 kg Intake: IV 200 Output: Urine 1400 700 Other: Voiding Method Urinal Urinal - Labs CBC & Chem 7: 03/24/23 11:47 03/26/23 07:25 Labs: Abnormal Lab Results - Last 24 Hours (Table) 03/26/23 Range/Units 07:25 BUN 29 H (9-20) mg/dL
[2023-03-26] MEDS: ACETAMINOPHEN TAB 325 MG TAB PO PRN (19:55)
[2023-03-26] MEDS: ATORVASTATIN 20 MG TAB PO SCH (19:55)
[2023-03-26] MEDS: MELATONIN 3 MG TABLET PO SCH (19:55)
[2023-03-26] MEDS ORDERED: QUEtiapine 50 MG TAB PO ONE (21:00)
[2023-03-26] MEDS ORDERED: ALPRAZolam 0.25 MG TAB PO STA (23:19)
[2023-03-27 09:30] LABS: African American GFR (CKD) 90 (>60 ml/min/1.73 sqM); Anion Gap 11 mmol/L; Blood Urea Nitrogen 30 mg/dL (9-20); Calcium 8.9 mg/dL (8.4-10.2); Carbon Dioxide 24 mmol/L (22-30); Chloride 103 mmol/L (98-107); Glucose 136 mg/dL (74-99); Non-African American GFR(CKD) 78 (>60 ml/min/1.73 sqM); Potassium 3.9 mmol/L (3.5-5.1); Sodium 138 mmol/L (137-145)
[2023-03-27] MEDS: METOPROLOL TARTRATE 50 MG TAB PO SCH (10:08)
[2023-03-27] MEDS: AMIODARONE 200 MG TAB PO SCH (10:08)
[2023-03-27] MEDS: FUROSEMIDE 40 MG TAB PO SCH (10:09)
[2023-03-27] MEDS: DAPAGLIFLOZIN PROPANEDIOL 10 MG TABLET PO SCH (10:09)
[2023-03-27] MEDS: SPIRONOLACTONE 25 MG TAB PO SCH (10:09)
[2023-03-27] MEDS: APIXABAN 5 MG TAB PO SCH (10:09)
[2023-03-27 10:58] VITALS: TEMP 97.6
[2023-03-27 12:05] VITALS: BP 81/55; PULSE 79; RESP 18
--- NOTE | 2023-03-27 12:25 | P.PN ---
Subjective Progress Note Date: 03/27/23 This is A pleasant 62-year-old male with a known history of atrial arrhythmia presented with symptoms of shortness of breath, CHF and evidence of atrial fibrillation with rapid ventricular response. Showed impaired LV systolic function. He persisted in having dyspnea but no chest discomfort and his blood pressure was on the low side. Yesterday he underwent DAMON guided cardioversion with DAMON showing later left atrium with normal appearance of the left atrial appendage, severe global hypokinesis without EF 30-35%, moderate MR and mild TR. He subsequently underwent cardioversion with 150 J. He is maintaining sinus mechanism and is overall feeling better. Objective - Vital Signs Vital signs: Vital Signs Temp 97.6 F 03/27/23 08:30 Pulse 79 03/27/23 11:15 Resp 18 03/27/23 11:15 BP 81/55 03/27/23 11:15 Pulse Ox 96 03/27/23 11:15 FiO2 Intake & Output 03/26/23 03/27/23 03/27/23 18:59 06:59 18:59 Intake Total 800 240 360 Output Total 1500 Balance 800 -1260 360 Weight 117.3 kg Intake: IV 200 Oral 600 240 360 Output: Urine 1500 Other: Voiding Method Urinal Urinal - Exam LUNGS: Clear to auscultation HEART: Regular rate and rhythm, S1, S2. No S3. Systolic ejection murmur ABDOMEN: Soft, nontender, no organomegaly EXTREMETIES: Trace edema - Labs CBC & Chem 7: 03/24/23 11:47 03/27/23 08:39 Labs: Abnormal Lab Results - Last 24 Hours (Table) 03/27/23 Range/Units 08:39 BUN 30 H (9-20) mg/dL Glucose 136 H (74-99) mg/dL Assessment and Plan Assessment: #1 persistent atrial fibrillation, status post cardioversion, maintaining sinus mechanism #2 cardiomyopathy probably related to the atrial fibrillation with symptoms of CHF #3 hyperlipidemia Plan: From cardiology's perspective continue anticoagulation. Continue amiodarone 400 mg by mouth twice a day for one week then decrease to 200 mg by mouth twice a day. He will follow-up with Dr. Alcala in the office in about a week. Further tapering of the amiodarone dose will be done as an outpatient. DIRECTOR OF CASINO note has been reviewed, I agree with a documented findings and plan of care. Patient was seen and examined.
--- NOTE | 2023-03-27 12:44 | P.DS ---
Providers Date of admission: 03/22/23 05:38 Expected date of discharge: 03/27/23 Attending physician: Amber Abdi MD Consults: 03/22/23 05:37 Consult Physician Routine Consulting Provider: Jodie Eddy Consult Reason/Comments: afibRVR Do you want consulting provider notified?: Yes Primary care physician: Ad Lei [facility] Course: Discharge Diagnosis: Acute on chronic congestive heart failure with reduced ejection fraction, EF 30- 35%, Paroxysmal atrial fibrillation with rapid ventricular response, status post cardioversion, in sinus Acute hypoxemic respiratory failure Non-anion gap metabolic acidosis Hypertension Hyperlipidemia Hospital Course: 60-year-old man with a medical history of atrial fibrillation, atrial flutter, hypertension, hyperlipidemia, nonischemic cardiomyopathy with ejection fraction 40-45% present for evaluation of dyspnea. In the emergency room, patient was afebrile, 108/79, heart rate 158, 95% on 2 L nasal cannula. CBC demonstrates leukocytosis to 14.9, otherwise unremarkable. Basic metabolic panel shows CO2 of 16, no anion gap. Liver function tests are unremarkable. BNP was 2450. Progress 0.07. TSH is 1.7. Troponins less than 0.012 than trended to less than 0.012 upon to repeat checks. Coags were unremarkable. D-dimer was elevated at 1.05. Chest x-ray demonstrates findings of cardiomegaly, increased reticular opacities bilaterally with increased pulmonary vascularity. EKG demonstrated atrial fibrillation with rapid ventricular response, normal axis, no evidence of ischemia. CT angiography of the chest showed bilateral airspace opacities in the lower lungs with bilateral pleural effusions with pulmonary vascular congestion as well as cardiomegaly. No evidence of pulmonary embolism. Patient was admitted to the hospital for further evaluation of A. fib with RVR as well as heart failure exacerbation. He is now on IV Lasix, amiodarone, Eliquis, and metoprolol. Farxiga also added. Echocardiogram showed LV systolic function 30 at 35%, moderate mitral regurgitation, moderate pulmonary hypertension, mild to moderate tricuspid regurgitation. Underwent successful DAMON cardioversion. Follow up with cardiology outpatient. Patient seen and examined at bedside. Vital signs reviewed and stable. General: nontoxic, no distress, appears at stated age Derm: warm, dry Head: atraumatic, normocephalic, symmetric Eyes: EOMI, no lid lag, anicteric sclera Mouth: no lip lesion, mucus membranes moist Cardiovascular: S1S2 regular, no murmur Lungs: Bibasilar rales , no accessory muscle use Abdominal: soft, nontender to palpation, no guarding, no appreciable organomegaly Ext: no gross muscle atrophy, trace pitting edema improved, no contractures Neuro: CN II-XI grossly intact, no focal neuro deficits Psych: Alert, oriented, appropriate affect A total of 33 minutes of time were spent preparing this complex discharge summary. Patient was discharged on 03/27/23 at 1241. Patient Condition at Discharge: Stable Plan - Discharge Summary Discharge Rx Participant: Yes New Discharge Prescriptions: New Spironolactone [Aldactone] 25 mg PO DAILY #90 tab Furosemide [Lasix] 40 mg PO BID@0900,1600 #60 tab Metoprolol Tartrate [Lopressor] 50 mg PO BID #180 tab Amiodarone [Cordarone] 400 mg PO BID #90 tab Apixaban [Eliquis] 5 mg PO BID #60 tab Dapagliflozin Propanediol [Farxiga] 10 mg PO DAILY #30 tab Atorvastatin [Lipitor] 20 mg PO HS #90 tab Discharge Medication List Amiodarone [Cordarone] 400 mg PO BID #90 tab 03/27/23 [Rx] Apixaban [Eliquis] 5 mg PO BID #60 tab 03/27/23 [Rx] Atorvastatin [Lipitor] 20 mg PO HS #90 tab 03/27/23 [Rx] Dapagliflozin Propanediol [Farxiga] 10 mg PO DAILY #30 tab 03/27/23 [Rx] Furosemide [Lasix] 40 mg PO BID@0900,1600 #60 tab 03/27/23 [Rx] Metoprolol Tartrate [Lopressor] 50 mg PO BID #180 tab 03/27/23 [Rx] Spironolactone [Aldactone] 25 mg PO DAILY #90 tab 03/27/23 [Rx] Follow up Appointment(s)/Referral(s): Myles Alcala MD [Family Provider] - 1 Week Ad Renae MD [Primary Care Provider] - 1-2 days Patient Instructions/Handouts: Heart Failure (DC), A-fib (Atrial Fibrillation) (DC) Discharge Disposition: HOME SELF-CARE
== END 2023-03-27 14:38 | disposition home or self-care (01) | DRG 291 ==
LOC: EC 01:38 → 1SOBS 05:38 → 3SCARD 09:27
PROVIDERS: ADMIT Internal Medicine; ATTEND Internal Medicine
PROC: 5A2204Z Restoration of Cardiac Rhythm, Single (ICD-10-PCS; principal; 2023-03-26 07:30)
PROC: B24BZZ4 Ultrasonography of Heart with Aorta, Transesophageal (ICD-10-PCS; principal; 2023-03-26 07:30)
DX: I11.0 Hypertensive heart disease with heart failure (principal); I50.23 Acute on chronic systolic (congestive) heart failure; J96.01 Acute respiratory failure with hypoxia; E87.20 Acidosis, unspecified; I48.3 Typical atrial flutter; I27.20 Pulmonary hypertension, unspecified; I42.8 Other cardiomyopathies; I48.0 Paroxysmal atrial fibrillation; J44.9 Chronic obstructive pulmonary disease, unspecified; D72.829 Elevated white blood cell count, unspecified; E78.5 Hyperlipidemia, unspecified; F10.11 Alcohol abuse, in remission; F41.9 Anxiety disorder, unspecified; I08.1 Rheumatic disorders of both mitral and tricuspid valves; T50.916A Underdosing of multiple unspecified drugs, medicaments and biological substances, initial encounter; Z91.128 Patient's intentional underdosing of medication regimen for other reason; Z87.891 Personal history of nicotine dependence
CPT/HCPCS: 36415; 71046; 71275; 80048; 80053; 83605; 83735; 83880; 84100; 84145; 84443; 84484; 85025; 85379; 85610; 85730; 92960; 93005; 93306; 93312; 93320; 93325; 94760; 96361; 96365; 96366; 96367; 96368; 96375; 96376; 99291

== ENCOUNTER 2023-11-08 05:41 | Day surgery (SDC) | payer OTHER ==
[2023-11-08] MEDS: SODIUM CHLORIDE 0.9% 1,000 ML IV ONE (06:10)
[2023-11-08 06:49] LABS: Basophils % (A) 1 %; Eosinophils # (A) 0.2 k/uL (0-0.7); Eosinophils % (A) 3 %; HCT 42.6 % (39.0-53.0); Lymphocytes # (A) 1.7 k/uL (1.0-4.8); Lymphocytes % (A) 23 %; MCH 31.5 pg (25.0-35.0); MCHC 32.8 g/dL (31.0-37.0); MCV 95.8 fL (80.0-100.0); Monocytes # (A) 0.5 k/uL (0-1.0); Monocytes % (A) 7 %; Neutrophils # (A) 4.6 k/uL (1.3-7.7); Neutrophils % (A) 63 %; Platelet Count 247 k/uL (150-450); RBC 4.44 m/uL (4.30-5.90); RDW 12.6 % (11.5-15.5); WBC 7.2 k/uL (3.8-10.6)
[2023-11-08] MEDS ORDERED: fentaNYL (PF) 50 MCG/ML 2 ML AMP ONE (07:20)
[2023-11-08] MEDS ORDERED: HEPARIN SODIUM,PORCINE 10,000 UNIT/ML 1 ML VIAL ONE (07:20)
[2023-11-08] MEDS ORDERED: PROPOFOL 10 MG/ML 20 ML VIAL IV ONE (07:20)
[2023-11-08] MEDS ORDERED: SUCCINYLCHOLINE CHLORIDE 200 MG/10 ML VIAL IV ONE (07:20)
[2023-11-08] MEDS ORDERED: PHENYLEPHRINE-0.9% NACL SYG 1,000 MCG/10 ML SYRINGE ONE (07:20)
[2023-11-08] MEDS ORDERED: GLYCOPYRROLATE 0.2 MG/ML 2 ML VIAL ONE (07:20)
[2023-11-08] MEDS ORDERED: ROCURONIUM 10 MG/ML (5 ML VIAL) IV ONE (07:20)
[2023-11-08] MEDS ORDERED: HEPARIN SODIUM,PORCINE 5,000 UNIT/ML 1 ML VIAL ONE (07:20)
[2023-11-08] MEDS ORDERED: NEOSTIGMINE 1 MG/ML 10 ML VIAL ONE (07:20)
[2023-11-08] MEDS ORDERED: LIDOCAINE 1% INJ 10MG/ML (20 ML MDV) ONE (07:20)
[2023-11-08] MEDS: IV FLUID CONTINUATION 850 ML IV ONE (07:24)
[2023-11-08 07:27] LABS: ALT 27 U/L (4-49); AST 28 U/L (17-59); African American GFR (CKD) >90 (>60 ml/min/1.73 sqM); Albumin 3.8 g/dL (3.5-5.0); Alkaline Phosphatase 111 U/L (38-126); Anion Gap 4 mmol/L; Blood Urea Nitrogen 23 mg/dL (9-20); Calcium 9.2 mg/dL (8.4-10.2); Carbon Dioxide 25 mmol/L (22-30); Chloride 109 mmol/L (98-107); Glucose 103 mg/dL (74-99); Non-African American GFR(CKD) >90 (>60 ml/min/1.73 sqM); Sodium 138 mmol/L (137-145); Total Bilirubin 0.4 mg/dL (0.2-1.3); Total Protein 6.5 g/dL (6.3-8.2)
[2023-11-08] MEDS: HEPARIN SODIUM,PORCINE (1 ML) 2,500 UNIT in SODIUM CHLORIDE 0.9% 250 ML IRRIGATION ONE (08:00)
[2023-11-08] MEDS: HEPARIN SODIUM,PORCINE 10,000 UNIT in SODIUM CHLORIDE 0.9% 1,000 ML IRRIGATION ONE (08:00)
[2023-11-08] MEDS: HEPARIN SOD,PORK IN 0.45% NACL 25,000 UNIT in 0.45% NACL 1 250ML.BAG IV ONE (08:04)
[2023-11-08] MEDS: LIDOCAINE 1% INJ 10MG/ML (20 ML MDV) SQ ONE (08:06)
[2023-11-08] MEDS: HEPARIN SODIUM (1,000 UNIT/ML) 1,000 UNIT in SODIUM CHLORIDE 0.9% 1,000 ML IRRIGATION ONE (10:00)
[2023-11-08] MEDS: IOPAMIDOL-250 100ML BTL IVP ONE (10:52)
--- NOTE | 2023-11-08 11:26 | P.HPCAR ---
History of Present Illness This is Dr. Alcala dictating an H/P on this patient The patient was interviewed and examined IMPRESSION / ASSESSMENT: Persistent atrial fibrillation with RVR treated with oral amiodarone Severe LV dysfunction on DAMON at that time Shortness of breath on exertion Lexiscan consistent with nonischemic cardiomyopathy with ejection fraction 49% Improvement in LV systolic function while in sinus rhythm on low-dose amiodarone Class II CHF, on guideline directed medical treatment PLAN: A-fib ablation Continue Eliquis Stop amiodarone after 1 month Consider Entresto in place of losartan in the future Farxiga was too expensive for the patient HPI Patient denies any fever chills cough expectoration No dizziness lightheadedness syncope chest pain Rhythm is regular today, no palpitations ROS: No fever chills or rigors, no cough, phlegm or expectoration, no nausea, vomiting or diarrhea, no hematuria, dysuria, no musculoskeletal complaints, no strokes or seizures, no skin lesions. EXAMINATION: Blood pressure normal 117/70 mmHg pulse rate in the 60s No JVD No lower extremity edema Heart sounds are regular and normal no murmurs Breath sounds are clear no rhonchi no crackles REVIEW OF LABS, ECG & MEDICAL DATA Normal TSH of 2.3 Normal liver function Normal electrolytes Normal hemoglobin Physical Exam Vitals: Vital Signs Temp Pulse Resp BP BP Pulse Ox 11/08/23 06:16 97.9 F 78 18 105/68 117/76 95 Intake and Output 11/07/23 11/08/23 11/08/23 22:59 06:59 14:59 Intake Total 150 748 Balance 150 748 Intake: IV 150 748 Other: Weight 112.8 kg Past Medical History Past Medical History: Atrial Fibrillation, Hyperlipidemia, Hypertension History of Any Multi-Drug Resistant Organisms: None Reported Past Surgical History: Cardiac Ablation Additional Past Surgical History / Comment(s): WISDOM TEETH REMOVED UNDER ANESTHESIA ABOUT 10 YEARS AGO Past Anesthesia/Blood Transfusion Reactions: No Reported Reaction Past Psychological History: No Psychological Hx Reported Smoking Status: Former smoker Past Alcohol Use History: None Reported Past Drug Use History: None Reported - Past Family History Father Family Medical History: Cancer Additional Family Medical History / Comment(s): COLON CANCER Son(s) Family Medical History: Cancer Additional Family Medical History / Comment(s): SKIN CANCER Physical Examination Vital Signs Temp Pulse Resp BP BP Pulse Ox 11/08/23 06:16 97.9 F 78 18 105/68 117/76 95 Intake and Output 11/07/23 11/08/23 11/08/23 22:59 06:59 14:59 Intake Total 150 748 Balance 150 748 Intake: IV 150 748 Other: Weight 112.8 kg Results 11/08/23 06:30 11/08/23 06:07 Cardiac Enzymes 11/08/23 Range/Units 06:07 AST 28 (17-59) U/L CBC 11/08/23 Range/Units 06:30 WBC 7.2 (3.8-10.6) k/uL RBC 4.44 (4.30-5.90) m/uL Hgb 14.0 (13.0-17.5) gm/dL Hct 42.6 (39.0-53.0) % Plt Count 247 (150-450) k/uL Comprehensive Metabolic Panel 11/08/23 Range/Units 06:07 Sodium 138 (137-145) mmol/L Potassium 4.0 (3.5-5.1) mmol/L Chloride 109 H (98-107) mmol/L Carbon Dioxide 25 (22-30) mmol/L BUN 23 H (9-20) mg/dL Creatinine 0.86 (0.66-1.25) mg/dL Glucose 103 H (74-99) mg/dL Calcium 9.2 (8.4-10.2) mg/dL AST 28 (17-59) U/L ALT 27 (4-49) U/L Alkaline Phosphatase 111 (38-126) U/L Total Protein 6.5 (6.3-8.2) g/dL Albumin 3.8 (3.5-5.0) g/dL Current Medications Generic Name Dose Route Start Last Admin Trade Name Freq PRN Reason Stop Dose Admin Acetaminophen 650 mg 11/08/23 11:12 Acetaminophen Tab 325 Mg Tab PO Q6HR PRN Mild Pain (Scale 1 to 3) Amiodarone HCl 100 mg 11/09/23 09:00 Amiodarone 100 Mg Tab PO DAILY CINDY Apixaban 5 mg 11/08/23 21:00 Apixaban 5 Mg Tab PO BID CINDY Protocol Atorvastatin Calcium 20 mg 11/08/23 21:00 Atorvastatin 20 Mg Tab PO HS CINDY Acetaminophen 1,000 mg/ IV 100 mls @ 400 mls/hr 11/08/23 11:12 Solution IVPB 11/08/23 11:26 ONCE ONE Losartan Potassium 50 mg 11/08/23 21:00 Losartan 50 Mg Tab PO HS CINDY Metoprolol Tartrate 50 mg 11/08/23 21:00 Metoprolol Tartrate 50 Mg Tab PO BID CINDY Sodium Chloride 12 ml 11/08/23 11:12 Sodium Chloride 0.9% Flush 10 Ml Syringe IV Q12HR PRN Line Flush Spironolactone 25 mg 11/09/23 09:00 Spironolactone 25 Mg Tab PO DAILY CINDY Intake and Output 11/07/23 11/08/23 11/08/23 22:59 06:59 14:59 Intake Total 150 748 Balance 150 748 Intake: IV 150 748 Other: Weight 112.8 kg 11/08/23 06:30 11/08/23 06:07
--- NOTE | 2023-11-08 11:32 | P.EPPROC ---
- EP Procedure Note Electrophysiology Procedure Note: PROCEDURE A. fib ablation with PVI and left atrial septal ablation DIAGNOSIS Persistent atrial fibrillation, symptomatic, refractory to therapy Nonischemic cardiomyopathy RESULT No left atrial appendage mass seen on intracardiac echo, very large right-sided pulmonary veins Large left common pulmonary vein, left atrial enlargement Successful A. fib ablation/pulmonary vein isolation of all veins using cryo- ablation Complete entrance block in all 4 veins confirmed, at an antral level with voltage mapping Left atrial septal ablation No evidence for phrenic nerve injury Esophageal deflection YES PROCEDURE DETAILS Written informed consent prior to procedure. Patient brought to the EP lab. General anesthesia given. Heparin administered. A city maintained above 300 seconds Both groins prepped and draped per protocol and venous sheaths placed. Esophagus intubated, circa catheter for temperature monitoring an endoscope for possible esophageal deflection. Phrenic nerve monitoring performed. Esophageal temperature monitoring performed. Esophageal deflection performed if circa catheter overlapping with the balloon or circa temperature less than 27.5C Intracardiac echocardiography performed. Pericardium evaluated. Left atrial appendage evaluated. Left atrium evaluated along with pulmonary veins Transseptal catheterization performed under fluoroscopic guidance and intracardiac echo guidance Cryoablation sheath exchanged, balloon catheter along with achieve catheter placed in the left atrium. Pulmonary veins isolated in the following sequence: Left superior pulmonary vein followed by left inferior pulmonary vein, followed by right inferior pulmonary vein and lastly right superior pulmonary vein. Phrenic nerve stimulation along with capture thresholds within the SVC and right superior pulmonary vein to identify the phrenic nerve proximity to the cryo- balloon. Pulmonary veins isolated and confirmed with entrance and exit block. Phrenic nerve integrity confirmed at the end of the procedure Ablation of the left atrial septum performed with cannulation of the inferior branch of the right superior vein to achieve ablation of the posterior septum of the left atrium. Ablation of electrograms confirmed Diagnostic catheters for the high right atrium, His bundle, coronary sinus placed. LA and RA pressures recorded RA pressure: 15/7/10 LA pressure: 19/7/13 Diagnostic EP study with coronary sinus pacing and recording sinus cycle length 859 ms, MI interval 189 ms, QRS 112 ms and QT interval 408 ms AH 80 ms and HV interval 45 ms Sinus node recovery times were 1282, 1321 and 1162. Borderline prolonged corrected sinus node recovery times AV node Wenckebach block mildly abnormal at 420 ms Venous sheaths were removed and hemostasis assured with a closure device. Patient extubated and transferred to recovery Increase procedural time Large left atrium but very large pulmonary veins The right superior pulmonary vein was very large and therefore 4 separate cryoablation lesions were applied superiorly inferiorly, anteriorly and posteriorly to achieve complete isolation and quiescence of the vein as well as the antrum The left-sided veins had a large common antrum and once again multiple short cryoablation lesions applied in the antrum of this common os superiorly inferiorly anteriorly and posteriorly to achieve complete quiescence of the antrum and complete isolation of both the pulmonary veins Complete pulmonary vein isolation along with left atrial septal ablation and confirmation of quiescence within the antrum of the veins and the pulmonary veins, took over 3 hours PROCEDURES PERFORMED Diagnostic EP study CS pacing and recording Left and right transseptal catheterization Catheter the mapping of the tachycardia Intracardiac echocardiography Pulmonary vein isolation with transseptal and comprehensive EPS, [id number] Extended procedure duration Linear ablation, left atrium, [id number]
[2023-11-08] MEDS: HYDROmorphone 0.5 MG/0.5 ML SYRINGE IVP STA (11:47)
[2023-11-08] MEDS: ACETAMINOPHEN IV (For NPO) 1,000 MG in EMPTY BAG 1 BAG IVPB ONE (13:09)
[2023-11-08] MEDS: SODIUM CHLORIDE 0.9% 1,000 ML IV SCH (18:08)
[2023-11-08] MEDS: LACTATED RINGERS 1,000 ML IV SCH (18:08)
[2023-11-08] MEDS: ACETAMINOPHEN TAB 325 MG TAB PO PRN (18:53)
[2023-11-08 19:26] VITALS: RESP 16
[2023-11-08] MEDS: ATORVASTATIN 20 MG TAB PO SCH (21:20)
[2023-11-08] MEDS: APIXABAN 5 MG TAB PO SCH (21:20)
[2023-11-08] MEDS: METOPROLOL TARTRATE 50 MG TAB PO SCH (21:20)
[2023-11-08] MEDS: LOSARTAN 50 MG TAB PO SCH (21:21)
[2023-11-09 07:29] VITALS: BP 110/75; PULSE 84; TEMP 97.9
[2023-11-09] MEDS: AMIODARONE 100 MG TAB PO SCH (09:52)
[2023-11-09] MEDS: SPIRONOLACTONE 25 MG TAB PO SCH (09:52)
--- NOTE | 2023-11-09 13:02 | P.DS ---
Providers Attending physician: Myles Alcala Primary care physician: [facility] Course: Patient is doing well denies any chest discomfort dizziness lightheadedness. His sore throat is mild and is improving Groins have healed well no hematoma No dizziness. He is ambulating around the room On examination blood pressure 110/75 mmHg pulse rate in the 50s afebrile Breath sounds are clear no rhonchi no crackles Heart sounds S1-S2 normal Impression Persistent atrial fibrillation with RVR Nonischemic cardiomyopathy ejection fraction 49% Status post A-fib ablation with wide [place] PVI and left atrial septal ablation Plan Continue beta-blockers Continue Eliquis Discontinue amiodarone after 1 month Consider Entresto increase of losartan in the future Patient Condition at Discharge: Stable Plan - Discharge Summary New Discharge Prescriptions: New Amiodarone [Cordarone] 100 mg PO DAILY #30 tablet Metoprolol Succinate [Toprol XL] 50 mg PO DAILY #90 tab Discontinued Metoprolol Tartrate [Lopressor] 50 mg PO BID #180 tab Amiodarone [Cordarone] 200 mg PO BID No Action Spironolactone [Aldactone] 25 mg PO DAILY #90 tab Apixaban [Eliquis] 5 mg PO BID #60 tab Atorvastatin [Lipitor] 20 mg PO HS #90 tab Losartan [Cozaar] 50 mg PO HS Discharge Medication List Apixaban [Eliquis] 5 mg PO BID #60 tab 03/27/23 [Rx] Atorvastatin [Lipitor] 20 mg PO HS #90 tab 03/27/23 [Rx] Spironolactone [Aldactone] 25 mg PO DAILY #90 tab 03/27/23 [Rx] Amiodarone [Cordarone] 100 mg PO DAILY #30 tablet 11/08/23 [Rx] Losartan [Cozaar] 50 mg PO HS 11/08/23 [History] Metoprolol Succinate [Toprol XL] 50 mg PO DAILY #90 tab 11/08/23 [Rx] Follow up Appointment(s)/Referral(s): Myles Alcala MD [STAFF PHYSICIAN] - 11/16/23 10:45 am (Follow-up with Dr. Alcala) Activity/Diet/Wound Care/Special Instructions: Post EP study - Ablation instructions 1. Keep access sites dry for 2 days. 2. No heavy lifting or straining for 2 days. 3. Avoid bending the hips repeatedly for 2 days. 4. You may go up and down stairs slowly Call if the following is noted 1. Bleeding, increasing swelling or pain at the access sites. 2. Increasing chest discomfort, especially upon taking a deep breath. 3. Increasing shortness of breath, at rest or with exertion. 4. Undue cough / phlegm 5. Difficulty or pain while swallowing. 6. Pain or change in color in the extremities. 7. Fever, chills, rigors. 8. Increasing headache or neurologic symptoms. 9. Dizziness, fainting, palpitations post EP study - Ablation instructions Amiodarone 100 mg p.o. daily Continue Eliquis and all other medications unchanged
== END 2023-11-09 14:09 | disposition home or self-care (01) ==
LOC: CATHEP 05:41 → 6NMEDSUR 10:59 → CATHEP 11-09 14:09
PROVIDERS: ATTEND Internal Medicine Clinical Cardiac Electrophysiology
DX: I48.19 Other persistent atrial fibrillation (principal); E78.5 Hyperlipidemia, unspecified; I10 Essential (primary) hypertension; I42.8 Other cardiomyopathies; Z79.01 Long term (current) use of anticoagulants; Z87.891 Personal history of nicotine dependence; Z79.899 Other long term (current) drug therapy; Z80.0 Family history of malignant neoplasm of digestive organs
CPT/HCPCS: 93656; 93657; 86900; 86901; 80053; 84443; 85025; 86850; C1759; C1894 ×2; C1769 ×4; C1760 ×2; C1730 ×2; C1731; C1893; C1733; C1766; J1644 ×4; J2001; J0131; J1170; Q9966

== ENCOUNTER 2024-04-29 18:03 | Emergency (ER) | payer OTHER ==
[2024-04-29 18:27] VITALS: TEMP 98.7
--- NOTE | 2024-04-29 18:55 | ED ---
General Adult HPI - General Source: patient, RN notes reviewed Mode of arrival: wheelchair Limitations: no limitations - History of Present Illness Onset/Timin -: days(s) <Vinicio Bae - Last Filed: 04/29/24 18:53> <Santos Chase - Last Filed: 04/30/24 19:11> - General Chief complaint: Nausea/Vomiting/Diarrhea Stated complaint: REAGAN, flu-like symptoms Time Seen by Provider: 04/29/24 18:17 - History of Present Illness Initial comments: Quick note: This is a 63-year-old male presenting with symptoms x 2 days. Endorses chills, headache, cough, fatigue and sweating. Also endorses nausea/vomiting/diarrhea. States his mother has recently been sick. Endorses use of Tylenol with minimal relief. (Vinicio Bae) 63-year-old male presenting with chief complaint of URI-like symptoms. Symptoms started yesterday. Patient is having cough, congestion, chills, headache, fatigue, body aches. He is also having nausea vomiting and diarrhea. He is having no abdominal pain. No chest pain or difficulty breathing. His mother was recently sick with similar symptoms. He has been using Tylenol for symptom control at home (Santos Chase) - Related Data Home Medications Medication Instructions Recorded Confirmed Losartan [Cozaar] 50 mg PO HS 11/08/23 11/08/23 Previous Rx's Medication Instructions Recorded Apixaban [Eliquis] 5 mg PO BID #60 tab 03/27/23 Atorvastatin [Lipitor] 20 mg PO HS #90 tab 03/27/23 Spironolactone [Aldactone] 25 mg PO DAILY #90 tab 03/27/23 Amiodarone [Cordarone] 100 mg PO DAILY #30 tablet 11/08/23 Metoprolol Succinate [Toprol XL] 50 mg PO DAILY #90 tab 11/08/23 Ondansetron Odt [Zofran Odt] 4 mg PO Q8HR PRN #20 tab 04/29/24 Oseltamivir [Tamiflu] 75 mg PO Q12HR 5 Days #10 cap 04/29/24 Allergies Allergy/AdvReac Type Severity Reaction Status Date / Time No Known Allergies Allergy Verified 11/08/23 06:11 Review of Systems ROS Other: All systems not noted in ROS Statement are negative. <Vinicio Bae - Last Filed: 04/29/24 18:53> ROS Other: All systems not noted in ROS Statement are negative. <RenaSantos - Last Filed: 04/30/24 19:11> ROS Statement: Those systems with pertinent positive or pertinent negative responses have been documented in the HPI. Past Medical History Past Medical History: Atrial Fibrillation, Heart Failure, Hyperlipidemia, Hypertension History of Any Multi-Drug Resistant Organisms: None Reported Past Surgical History: Cardiac Ablation Additional Past Surgical History / Comment(s): WISDOM TEETH REMOVED UNDER ANESTHESIA ABOUT 10 YEARS AGO Past Anesthesia/Blood Transfusion Reactions: No Reported Reaction Past Psychological History: No Psychological Hx Reported Smoking Status: Former smoker Past Alcohol Use History: None Reported Past Drug Use History: None Reported - Past Family History Father Family Medical History: Cancer Additional Family Medical History / Comment(s): COLON CANCER Son(s) Family Medical History: Cancer Additional Family Medical History / Comment(s): SKIN CANCER <Vinicio Bae - Last Filed: 04/29/24 18:53> General Exam Limitations: no limitations <Vinicio Bae - Last Filed: 04/29/24 18:53> Limitations: no limitations General appearance: alert, in no apparent distress Head exam: Present: atraumatic, normocephalic, normal inspection Eye exam: Present: normal appearance, EOMI Neck exam: Present: normal inspection. Absent: meningismus Respiratory exam: Present: normal lung sounds bilaterally. Absent: respiratory distress, wheezes, rales, rhonchi, stridor Cardiovascular Exam: Present: regular rate, normal rhythm, normal heart sounds. Absent: systolic murmur, diastolic murmur, rubs, gallop, clicks GI/Abdominal exam: Present: soft. Absent: distended, tenderness, guarding, rebound, rigid Neurological exam: Present: alert, oriented X3 Psychiatric exam: Present: normal affect, normal mood Skin exam: Present: warm, dry <Santos Chase - Last Filed: 04/30/24 19:11> - General Exam Comments Initial Comments: Visual Physical Exam Vital signs reviewed General: Well-appearing, nontoxic, no acute distress. Patient seated in wheelchair Head: Normocephalic, atraumatic Eyes: PERRLA, EOMI ENT: Airway patent Chest: Nonlabored breathing Skin: No visual rash, normal skin tone Neuro: Alert and oriented 3 Musculoskeletal: No gross abnormalities (Vinicio Bae) Course Vital Signs 04/29/24 04/29/24 04/29/24 18:22 21:05 21:51 Temperature 98.7 F Pulse Rate 113 H 99 90 Respiratory 20 18 18 Rate Blood Pressure 115/72 124/72 110/64 O2 Sat by Pulse 97 94 L 97 Oximetry Medical Decision Making <Vinicio Bae - Last Filed: 04/29/24 18:53> <Santos Chase - Last Filed: 04/30/24 19:11> - Medical Decision Making I completed the quick note portion of this chart signed CK Mcdaniels (Vinicio Bae) Was pt. sent in by a medical professional or institution (TWILA Dominguez, SENIOR RELATIONSHIP MANAGER, urgent care, hospital, or fci...) When possible be specific @ -No Did you speak to anyone other than the patient for history (EMS, parent, family, police, friend...)? What history was obtained from this source @ -No Did you review nursing and triage notes (agree or disagree)? Why? @ -I reviewed and agree with nursing and triage notes Were old charts reviewed (outside hosp., previous admission, EMS record, old EKG, old radiological studies, urgent care reports/EKG's, fci records)? Report findings @ -No old charts were reviewed Differential Diagnosis (chest pain, altered mental status, abdominal pain women, abdominal pain men, vaginal bleeding, weakness, fever, dyspnea, syncope, headache, dizziness, GI bleed, back pain, seizure, CVA, palpatations, mental health, musculoskeletal)? @ -Differential includes influenza, RSV, COVID, pneumonia, this is not an all- inclusive list EKG interpreted by me (3pts min.). @ -As above X-rays interpreted by me (1pt min.). @ -Chest x-ray shows no acute process CT interpreted by me (1pt min.). @ -None done U/S interpreted by me (1pt. min.). @ -None done What testing was considered but not performed or refused? (CT, X-rays, U/S, labs)? Why? @ -None What meds were considered but not given or refused? Why? @ -None Did you discuss the management of the patient with other professionals (professionals i.e. Dr., PA, SENIOR RELATIONSHIP MANAGER, lab, RT, psych nurse, social insurance adviser, construction checker, teacher, information management officer, shoe caser)? Give summary @ -No Was smoking cessation discussed for >3mins.? @ -No Was critical care preformed (if so, how long)? @ -No Were there social determinants of health that impacted care today? How? (Homelessness, low income, unemployed, alcoholism, drug addiction, transporta tion, low edu. Level, literacy, decrease access to med. care, assisted, rehab)? @ -No Was there de-escalation of care discussed even if they declined (Discuss DNR or withdrawal of care, Hospice)? DNR status @ -No What co-morbidities impacted this encounter? (DM, HTN, Smoking, COPD, CAD, Cancer, CVA, ARF, Chemo, Hep., AIDS, mental health diagnosis, sleep apnea, morbid obesity)? @ -None Was patient admitted / discharged? Hospital course, mention meds given and route, prescriptions, significant lab abnormalities, going to OR and other pertinent info. @ -63-year-old male presenting with chief complaint of URI-like symptoms nausea and vomiting. Symptoms started yesterday. Lungs are clear to auscultation. Patient is positive for influenza A. Chest x-ray shows no acute process. Patient was started on Tamiflu. Provided with Zofran for home. Educated on today's findings and treatment plan. Follow-up with PCP. Report back to ER with any new or worsening symptoms. Discussed return parameters and answered all questions. Patient conveyed verbal understanding and agreed to the plan. I discussed this case in detail with my attending Dr. Montez Undiagnosed new problem with uncertain prognosis? @ -No Drug Therapy requiring intensive monitoring for toxicity (Heparin, Nitro, Insulin, Cardizem)? @ -No Were any procedures done? @ -No Diagnosis/symptom? @ -Influenza A Acute, or Chronic, or Acute on Chronic? @ -Acute Uncomplicated (without systemic symptoms) or Complicated (systemic symptoms)? @ -Uncomplicated Side effects of treatment? @ -No Exacerbation, Progression, or Severe Exacerbation? @ -No Poses a threat to life or bodily function? How? (Chest pain, [place], [place], pneumonia, PE, COPD, DKA, ARF, appy, cholecystitis, CVA, Diverticulitis, Homicidal, Suicidal, threat to staff... and all critical care pts) @ -Low likelihood at this time (Santos Chase) - Lab Data Lab Results 04/29/24 Range/Units 18:37 Influenza Type A (PCR) Detected A (Not Detectd) Influenza Type B (PCR) Not Detected (Not Detectd) RSV (PCR) Not Detected (Not Detectd) SARS-CoV-2 (PCR) Not Detected (Not Detectd) Disposition <Vinicio Bae - Last Filed: 04/29/24 18:53> Is patient prescribed a controlled substance at d/c from ED?: No Time of Disposition: 20:57 <Santos Chase - Last Filed: 04/30/24 19:11> Clinical Impression: Influenza A Disposition: HOME SELF-CARE Condition: Good Instructions (If sedation given, give patient instructions): Influenza (ED) Additional Instructions: Follow-up with your PCP. Report back to ER with any new or worsening symptoms. Take medication as prescribed. Take Motrin and Tylenol as needed for pain and fever. Stay well-hydrated and get plenty of rest Prescriptions: Oseltamivir [Tamiflu] 75 mg PO Q12HR 5 Days #10 cap Ondansetron Odt [Zofran Odt] 4 mg PO Q8HR PRN #20 tab PRN Reason: Nausea Referrals: Ad Renae MD [Primary Care Provider] - 1-2 days
--- NOTE | 2024-04-29 19:31 | XR ---
EXAMINATION TYPE: XR chest 2V DATE OF EXAM: 04/29/2024 7:10 PM COMPARISON: 03/22/2023 CLINICAL INDICATION: Male, 63 years old with history of Cough, fatigue, TECHNIQUE: XR chest 2V view(s) obtained. FINDINGS: The heart size is normal. The pulmonary vasculature is normal. The lungs are clear. IMPRESSION: 1. No acute pulmonary process. [facility], , 04/29/2024 7:29 PM
[2024-04-29] MEDS: ONDANSETRON ODT 4 MG TAB PO STA (20:44)
[2024-04-29 21:07] VITALS: RESP 18
[2024-04-29 21:52] VITALS: BP 110/64; PULSE 90
== END 2024-04-29 21:56 | disposition home or self-care (01) ==
LOC: EC 18:03
DX: J10.1 Influenza due to other identified influenza virus with other respiratory manifestations (principal); B95.0 Streptococcus, group A, as the cause of diseases classified elsewhere; Z87.891 Personal history of nicotine dependence
CPT/HCPCS: 71046; 87636; 99285